=== PATIENT | male | born 1975 | race Caucasian/White ===

== ENCOUNTER 2017-11-08 18:51 | Inpatient (IN) | payer BC, OTHER ==
[~2017-11-08] VITALS: Ht 180.3 cm; Wt 113.4 kg
[~2017-11-08 18:51] MED LIST: ATOR20TA42 PO; BACT800T5 PO; CEPH500C3 PO; CLON1 PO; CLOP75 PO; LAMO100 PO; LEVE750T8 PO; METO50TA PO; PRED20 PO; TYLE3 PO
[2017-11-08 19:25] VITALS: BP 163/86; PULSE 100; RESP 20; TEMP 98.4; O2SAT 97
--- NOTE | 2017-11-08 21:52 | RADRPT ---
EXAM DATE/TIME: 11/08/2017 20:56 [place] COMPARISON: No previous studies available for comparison. INDICATIONS : Right leg pain and swelling. MEDICAL HISTORY : Hypertension. Hypercholesterolemia. Seizures. PE. CAD. Kidney Stones. SURGICAL HISTORY : Coronary artery stent. Inguinal hernia repair. Umbilical hernia repair. Right Femur moris placement. Right Ureter Surgery. ENCOUNTER: Initial ACUITY: PAIN SCORE: LOCATION: Right leg. TECHNIQUE: Venous ultrasound of the leg was performed from the inguinal ligament to the proximal calf. Real-char e, color Doppler and spectral tracing, compression and augmentation techniques were used. FINDINGS: There is normal compressibility of the deep venous system from the inguinal region to the proximal ca lf. No echogenic clot is seen in the lumen of the common femoral, femoral, popliteal, and posterior tibial veins. There is a normal response of the venous system to proximal and distal augmentation an d respiration. CONCLUSION: 1. Negative for deep venous thrombosis. Mildly enlarged right inguinal lymph nodes. Kev Lopez MD on November 08, 2017 at 21:49 Board Certified Radiologist. This report was verified electronically.
[2017-11-08 21:56] LABS: AUTOMATED NEUTROPHIL # 2.9 TH/MM3 (1.8-7.7); BASOPHIL % 0.3 % (0.0-2.0); EOSINOPHIL # 0.2 TH/MM3 (0-0.4); EOSINOPHIL % 4.2 % (0.0-4.0); HEMOGLOBIN 14.4 GM/DL (13.0-17.0); LYMPH % 37.5 % (9.0-44.0); LYMPHOCYTE # 2.2 TH/MM3 (1.0-4.8); MEAN CELL VOLUME 95.6 FL (80.0-100.0); MEAN CORPUSCULAR HEMOGLOBIN 33.5 PG (27.0-34.0); MEAN PLATELET VOLUME 8.8 FL (7.0-11.0); MONO % 9.1 % (0.0-8.0); MONOCYTE # 0.5 TH/MM3 (0-0.9); NEUT % 48.9 % (16.0-70.0); PLATELET COUNT 192 TH/MM3 (150-450); RED BLOOD COUNT 4.28 MIL/MM3 (4.50-5.90); RED CELL DISTRIBUTION WIDTH 13.8 % (11.6-17.2)
[2017-11-08 22:08] LABS: AST (GOT) 19 U/L (15-37); BICARBONATE 24.1 MEQ/L (21.0-32.0); BLOOD UREA NITROGEN 12 MG/DL (7-18); CALCIUM 8.6 MG/DL (8.5-10.1); CHLORIDE 110 MEQ/L (98-107); CREATININE 0.92 MG/DL (0.60-1.30); GLOMERULAR FILTRATION RATE 90 ML/MIN (>89); GLUCOSE,RANDOM 80 MG/DL (74-106); SODIUM (NA) 142 MEQ/L (136-145)
[2017-11-08 22:11] LABS: ALKALINE PHOSPHATASE 102 U/L (45-117); ALT (GPT) 31 U/L (12-78); TOTAL BILIRUBIN ADULT 0.4 MG/DL (0.2-1.0); TOTAL PROTEIN 7.5 GM/DL (6.4-8.2)
[2017-11-08] MEDS ORDERED: LAMI200T PO (22:11)
[2017-11-08] MEDS ORDERED: KEPP10002 PO (22:11)
[2017-11-08] MEDS ORDERED: LIPI20TA PO (22:11)
[2017-11-08] MEDS ORDERED: PLAV75TA29 PO (22:11)
[2017-11-08] MEDS ORDERED: METO50TA PO (22:11)
[2017-11-08] MEDS ORDERED: CLON1 PO (22:11)
[2017-11-08 22:15] VITALS: BP 154/91; PULSE 84; RESP 18; O2SAT 97
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
[2017-11-08] MEDS ORDERED: VANCOMYCIN INJ 1,000 MG in SODIUM CHLOR 0.9% 250 ML INJ 250 ML IV ONE (23:00)
[2017-11-08] MEDS ORDERED: PIPERACIL-TAZO 3.375 GM PREMIX 50 ML IV ONE (23:00)
[2017-11-08] MEDS ORDERED: SODIUM CHLOR 0.9% 1000 ML INJ 1,000 ML IV ONE (23:00)
[2017-11-08] MEDS ORDERED: ACETAMINOPHEN/HYDROcodone 325 MG/5 MG TAB PO ONE (23:15)
[2017-11-09] VITALS (9 sets, daily range): BP systolic 110–141; BP diastolic 59–83; PULSE 62–91; RESP 15–21; TEMP 97.6–98.8; O2SAT 93–98
[2017-11-09] MEDS ORDERED: SENNOSIDES 8.6 MG TAB PO PRN (01:30)
[2017-11-09] MEDS ORDERED: NALOXONE HCL 0.4 MG/ML AMP IV PUSH PRN (01:30)
[2017-11-09] MEDS ORDERED: BISACODYL 10 MG SUPP RECTAL PRN (01:30)
[2017-11-09] MEDS ORDERED: MAGNESIUM HYDROXIDE SUSP 30 ML CUP PO PRN (01:30)
[2017-11-09] MEDS ORDERED: Vancomycin Consult Pharmacy 1 EA OTHER SCH (01:30)
[2017-11-09] MEDS ORDERED: ONDANSETRON HCL 4 MG/2 ML VIAL IVP PRN (01:30)
[2017-11-09] MEDS ORDERED: LACTULOSE SYRUP 20 GM/30 ML CUP PO PRN (01:30)
[2017-11-09] MEDS ORDERED: ACETAMINOPHEN 325 MG TAB PO PRN (01:30)
[2017-11-09] MEDS ORDERED: lamoTRIgine 100 MG TAB PO ONE (02:15)
[2017-11-09] MEDS ORDERED: clonazePAM 1 MG TAB PO ONE (02:15)
[2017-11-09] MEDS ORDERED: levETIRAcetam 500 MG TAB PO ONE (02:15)
[2017-11-09] MEDS ORDERED: VANCOMYCIN 1 GM/200 ML INJ 200 ML IV ONE (03:00)
--- NOTE | 2017-11-09 03:19 | HHI.HP ---
[facility] Jasmyne Conde MD Admission Diagnosis right leg Cellulitis Diagnoses: Travel History International Travel<30 Days: No Contact w/Intl Traveler <30 Da: No Traveled to Known Affected Are: No History of Present Illness 42-year-old male with a past medical history significant for previous PE, coronary artery disease, hypertension and seizure disorder presents to the emergency department for evaluation of right lower extremity redness and swelling. The patient reports that on Wednesday he had 2 small red dots on the back of his thigh which she thought was a spider bite. Over the last 2 days the area of erythema and induration has expanded to include a large portion of the posterior aspect of his right thigh, down the back of his knee and onto his right calf. The area is dry and scaly without drainage or fluctuance. The patient endorses subjective chills, denies fever. 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 He was previously treated with 35 days of Levaquin for a testicular mass with retroperitoneal lymphadenopathy. Of note, the patient does have a history of PE and flew from [place] to [facility] earlier this evening. The patient denies any chest pain or shortness of breath. No abdominal pain. No nausea/ vomiting/diarrhea. No fatigue or weakness. Review of Systems Except as stated in HPI: all other systems reviewed are Neg Past Family Social History Past Medical History History of PE Coronary artery disease Seizure disorder Hypertension Past Surgical History Cardiac catheterization with stent placement 1 Coronary artery disease Seizure disorder Hypertension Reported Medications Reported Meds & Active Scripts Active Reported Metoprolol Tartrate 50 Mg Tab 50 Mg PO BID Plavix (Clopidogrel Bisulfate) 75 Mg Tab 75 Mg PO DAILY Lipitor (Atorvastatin Calcium) 20 Mg Tab 20 Mg PO HS Klonopin (Clonazepam) 1 Mg Tab 1 Mg PO BID Lamictal (Lamotrigine) 200 Mg Tab 200 Mg PO BID Keppra (Levetiracetam) 1,000 Mg Tab 1,500 Mg PO BID Allergies: Coded Allergies: clarithromycin (Unverified Allergy, Severe, HICCUPS FOR 1 WK, 4/2/18) cyclobenzaprine (Unverified Allergy, Severe, SWELLING, 11/08/17) diclofenac (Unverified Allergy, Intermediate, hypertensive, 11/08/17) etodolac (Unverified Allergy, Intermediate, hypertensive, 11/08/17) flurbiprofen (Unverified Allergy, Intermediate, hypertensive, 11/08/17) ibuprofen (Unverified Allergy, Intermediate, hypertensive, 11/08/17) indomethacin (Unverified Allergy, Intermediate, hypertensive, 11/08/17) ketoprofen (Unverified Allergy, Intermediate, hypertensive, 11/08/17) ketorolac (Unverified Allergy, Intermediate, hypertensive, 11/08/17) naproxen (Unverified Allergy, Intermediate, hypertensive, 11/08/17) oxaprozin (Unverified Allergy, Intermediate, hypertensive, 11/08/17) Family History Mother with lupus. Father with diabetes mellitus. Social History Smokes a quarter pack of cigarettes daily. Occasional alcohol. No illicit drugs. Physical Exam Vital Signs Vital Signs Date Time Temp Pulse Resp B/P (MAP) Pulse Ox O2 Delivery O2 Flow Rate FiO2 11/09/17 02:39 72 18 122/77 (92) 96 Room Air 11/09/17 00:16 18 11/09/17 00:10 76 18 127/71 (89) 95 Room Air 11/08/17 22:15 18 97 Room Air 11/08/17 22:15 84 18 154/91 (112) 97 Room Air 11/08/17 19:25 98.4 100 20 163/86 (111) 97 Physical Exam GENERAL: male lying in bed SKIN: Erythema with mild edema on the posterior aspect of the right thigh that extends past the knee to the calf. Areas of dryness and scaly skin. No drainage. HEAD: Atraumatic. Normocephalic. No temporal or scalp tenderness. EYES: Pupils equal round and reactive. Extraocular motions intact. No scleral icterus. No injection or drainage. ENT: Nose without bleeding, purulent drainage or septal hematoma. Throat without erythema, tonsillar hypertrophy or exudate. Uvula midline. Airway patent. NECK: Trachea midline. No JVD or lymphadenopathy. Supple, nontender, no meningeal signs. CARDIOVASCULAR: Regular rate and rhythm without murmurs, gallops, or rubs. RESPIRATORY: Clear to auscultation. Breath sounds equal bilaterally. No wheezes , rales, or rhonchi. GASTROINTESTINAL: Abdomen soft, non-tender, nondistended. No hepato-splenomegaly , or palpable masses. No guarding. MUSCULOSKELETAL: Extremities without clubbing or cyanosis. Pulses intact. NEUROLOGICAL: Awake and alert. Cranial nerves II through XII intact. Motor and sensory grossly within normal limits. Normal speech. Laboratory Laboratory Tests Test 11/08/17 20:50 11/08/17 23:20 White Blood Count 6.0 Red Blood Count 4.28 Hemoglobin 14.4 Hematocrit 41.0 Mean Corpuscular Volume 95.6 Mean Corpuscular Hemoglobin 33.5 Mean Corpuscular Hemoglobin Concent 35.0 Red Cell Distribution Width 13.8 Platelet Count 192 Mean Platelet Volume 8.8 Neutrophils (%) (Auto) 48.9 Lymphocytes (%) (Auto) 37.5 Monocytes (%) (Auto) 9.1 Eosinophils (%) (Auto) 4.2 Basophils (%) (Auto) 0.3 Neutrophils # (Auto) 2.9 Lymphocytes # (Auto) 2.2 Monocytes # (Auto) 0.5 Eosinophils # (Auto) 0.2 Basophils # (Auto) 0.0 CBC Comment DIFF FINAL Differential Comment Blood Urea Nitrogen 12 Creatinine 0.92 Random Glucose 80 Total Protein 7.5 Albumin 4.0 Calcium Level 8.6 Alkaline Phosphatase 102 Aspartate Amino Transf (AST/SGOT) 19 Alanine Aminotransferase (ALT/SGPT) 31 Total Bilirubin 0.4 Sodium Level 142 Potassium Level 3.8 Chloride Level 110 Carbon Dioxide Level 24.1 Anion Gap 8 Estimat Glomerular Filtration Rate 90 Lactic Acid Level 0.7 Date/Time Source Procedure Growth Status 11/08/17 23:20 Blood Peripheral Aerobic Blood Culture Pending Received 11/08/17 23:20 Blood Peripheral Anaerobic Blood Culture Pending Received Result Diagram: 11/08/17204911/08/172049 Caprini VTE Risk Assessment Caprini VTE Risk Assessment: No/Low Risk (score <= 1) Caprini Risk Assessment Model Point Value = 1 Point Value = 2 Point Value = 3 Point Value = 5 Age 41-60 Minor surgery BMI > 25 kg/m2 Swollen legs Varicose veins or History of unexplained or recurrent spontaneous Oral contraceptives or hormone replacement Sepsis (< 1 month) Serious lung disease, including pneumonia (< 1 month) Abnormal pulmonary function Acute myocardial infarction Congestive heart failure (< 1 month) History of inflammatory bowel disease Medical patient at bed rest Age 61-74 Arthroscopic surgery Major open surgery (> 45 min) Laparoscopic surgery (> 45 min) Malignancy Confined to bed (> 72 hours) Immobilizing plaster cast Central venous access Age >= 75 History of VTE Family history of VTE Factor V Leiden Prothrombin [id number] Lupus anticoagulant Anticardiolipin antibodies Elevated serum homocysteine Heparin-induced thrombocytopenia Other congenital or acquired thrombophilia Stroke (< 1 month) Elective arthroplasty Hip, pelvis, or leg fracture Acute spinal cord injury (< 1 month) Prophylaxis Regimen Total Risk Factor Score Risk Level Prophylaxis Regimen 0-1 Low Early ambulation 2 Moderate Order ONE of the following: *Sequential Compression Device (SCD) *Heparin 5000 units SQ BID 3-4 Higher Order ONE of the following medications: *Heparin 5000 units SQ TID *Enoxaparin/Lovenox 40 mg SQ daily (WT < 150 kg, CrCl > 30 mL/min) *Enoxaparin/Lovenox 30 mg SQ daily (WT < 150 kg, CrCl > 10-29 mL/min) *Enoxaparin/Lovenox 30 mg SQ BID (WT < 150 kg, CrCl > 30 mL/min) AND/OR *Sequential Compression Device (SCD) 5 or more Highest Order ONE of the following medications: *Heparin 5000 units SQ TID (Preferred with Epidurals) *Enoxaparin/Lovenox 40 mg SQ daily (WT < 150 kg, CrCl > 30 mL/min) *Enoxaparin/Lovenox 30 mg SQ daily (WT < 150 kg, CrCl > 10-29 mL/min) *Enoxaparin/Lovenox 30 mg SQ BID (WT < 150 kg, CrCl > 30 mL/min) AND *Sequential Compression Device (SCD) Assessment and Plan Assessment and Plan Assessment/plan: 1. Cellulitis Vancomycin/Zosyn Blood cultures pending Transition to by mouth antibiotics if clinically improving and cultures are negative 2. Seizure disorder Continue home Lamictal, Keppra and Klonopin 3. History of PE Patient not currently on long-term anticoagulation Ultrasound right lower extremity negative 4. Hypertension/CAD Continue home medications FEN Heart healthy diet Electrolytes: Monitor and replete when necessary Physician Certification 2 Midnight Certification Type: Admission for Inpatient Services Order for Inpatient Services The services are ordered in accordance with Medicare regulations or non- Medicare payer requirements, as applicable. In the case of services not specified as inpatient-only, they are appropriately provided as inpatient services in accordance with the 2-midnight benchmark. Estimated LOS (days): 2 2 days is the estimated time the patient will need to remain in the hospital, assuming treatment plan goals are met and no additional complications. Post-Hospital Plan: Not yet determined Madison Mcmahon MD Nov 09, 2017 03:18
[2017-11-09 03:51] LABS: PROTHROMBIN TIME - PATIENT 10.6 SEC (9.8-11.6)
[2017-11-09] MEDS: ACETAMINOPHEN/HYDROcodone 325 MG/5 MG TAB PO PRN ×4 (04:36→20:56)
[2017-11-09] MEDS: PIPERACIL-TAZO 3.375 GM PREMIX 50 ML IV SCH ×4 (05:06→23:30)
[2017-11-09] MEDS: levETIRAcetam 500 MG TAB PO SCH ×2 (08:59→20:56)
[2017-11-09] MEDS: DOCUSATE SODIUM 50 MG/SENNA 8.6 MG TAB PO SCH ×2 (09:00→21:00)
[2017-11-09] MEDS: SODIUM CHLORIDE 0.9% FLUSH 10 ML FLUSH IV FLUSH SCH ×2 (09:00→21:07)
[2017-11-09] MEDS: CLOPIDOGREL 75 MG TAB PO SCH (09:00)
[2017-11-09] MEDS: METOPROLOL TARTRATE 50 MG TAB PO SCH ×2 (09:00→20:56)
[2017-11-09] MEDS: clonazePAM 1 MG TAB PO SCH ×2 (09:01→20:55)
[2017-11-09] MEDS: HEPARIN SODIUM - SQ 10,000 UNITS/ML VIAL SQ SCH ×2 (11:00→21:01)
[2017-11-09] MEDS ORDERED: VANCOMYCIN INJ 1,000 MG in SODIUM CHLOR 0.9% 250 ML INJ 250 ML IV SCH (11:00)
[2017-11-09] MEDS: lamoTRIgine 100 MG TAB PO SCH ×2 (11:00→20:55)
[2017-11-09] MEDS: VANCOMYCIN INJ 1,750 MG in SODIUM CHLORID 0.9% 500 ML INJ 500 ML IV SCH ×2 (11:01→23:34)
[2017-11-09] MEDS: ATORVASTATIN 20 MG TAB PO SCH (20:56)
[2017-11-10] MEDS: ACETAMINOPHEN/HYDROcodone 325 MG/5 MG TAB PO PRN ×5 (01:52→21:56)
[2017-11-10 04:00] VITALS: BP 118/61; PULSE 62; RESP 18; TEMP 97.5; O2SAT 95
[2017-11-10] MEDS: PIPERACIL-TAZO 3.375 GM PREMIX 50 ML IV SCH ×4 (05:16→23:58)
[2017-11-10 07:29] LABS: AUTOMATED NEUTROPHIL # 2.8 TH/MM3 (1.8-7.7); BASOPHIL % 0.4 % (0.0-2.0); EOSINOPHIL # 0.2 TH/MM3 (0-0.4); EOSINOPHIL % 3.7 % (0.0-4.0); HEMATOCRIT 38.4 % (39.0-51.0); HEMOGLOBIN 13.2 GM/DL (13.0-17.0); LYMPH % 42.3 % (9.0-44.0); LYMPHOCYTE # 2.7 TH/MM3 (1.0-4.8); MEAN CELL VOLUME 96.8 FL (80.0-100.0); MEAN CORPUSCULAR HEMOGLOBIN 33.2 PG (27.0-34.0); MEAN CORPUSCULAR HGB CONC 34.3 % (32.0-36.0); MEAN PLATELET VOLUME 8.5 FL (7.0-11.0); MONO % 9.1 % (0.0-8.0); MONOCYTE # 0.6 TH/MM3 (0-0.9); NEUT % 44.5 % (16.0-70.0); PLATELET COUNT 164 TH/MM3 (150-450); RED BLOOD COUNT 3.97 MIL/MM3 (4.50-5.90); RED CELL DISTRIBUTION WIDTH 14.2 % (11.6-17.2); WHITE BLOOD COUNT 6.3 TH/MM3 (4.0-11.0)
[2017-11-10 07:49] VITALS: BP 118/59; PULSE 59; RESP 18; TEMP 97.6; O2SAT 94
[2017-11-10 07:53] LABS: BICARBONATE 27.7 MEQ/L (21.0-32.0); CALCIUM 8.4 MG/DL (8.5-10.1); CREATININE 0.95 MG/DL (0.60-1.30)
[2017-11-10] MEDS: METOPROLOL TARTRATE 50 MG TAB PO SCH ×2 (09:00→22:18)
[2017-11-10] MEDS: SODIUM CHLORIDE 0.9% FLUSH 10 ML FLUSH IV FLUSH SCH ×2 (09:00→22:08)
[2017-11-10] MEDS: levETIRAcetam 500 MG TAB PO SCH ×2 (09:58→21:58)
[2017-11-10] MEDS: clonazePAM 1 MG TAB PO SCH ×2 (09:58→21:58)
[2017-11-10] MEDS: lamoTRIgine 100 MG TAB PO SCH ×2 (09:58→21:59)
[2017-11-10] MEDS: DOCUSATE SODIUM 50 MG/SENNA 8.6 MG TAB PO SCH ×2 (09:58→21:58)
[2017-11-10] MEDS: CLOPIDOGREL 75 MG TAB PO SCH (09:59)
[2017-11-10] MEDS: HEPARIN SODIUM - SQ 10,000 UNITS/ML VIAL SQ SCH ×2 (09:59→21:59)
[2017-11-10] MEDS ORDERED: INFLUENZA VIRUS VACCINE (QUADRIVALENT) 0.5 ML SYR IM ONE (10:00)
[2017-11-10] MEDS ORDERED: PNEUMOCOCCAL POLYVALENT INJ 25 MCG/0.5 ML SYR IM ONE (10:00)
[2017-11-10] MEDS ORDERED: PHARMACY ORDERED LAB ONE (11:45)
[2017-11-10 12:00] VITALS: BP 122/82; PULSE 73; RESP 18; TEMP 97.5; O2SAT 96
[2017-11-10] MEDS: VANCOMYCIN INJ 1,750 MG in SODIUM CHLORID 0.9% 500 ML INJ 500 ML IV SCH ×2 (12:51→23:58)
--- NOTE | 2017-11-10 13:49 | HHI.PR ---
Subjective Remarks Follow up cellulitis. Patient states that the erythema is "about the same" and the swelling is "just a little better". Denies fever, chills. No chest pain or dyspnea. Objective Vitals Vital Signs Date Time Temp Pulse Resp B/P (MAP) Pulse Ox O2 Delivery O2 Flow Rate FiO2 11/10/17 12:00 97.5 73 18 122/82 (95) 96 11/10/17 07:49 97.6 59 18 118/59 (78) 94 11/10/17 04:00 97.5 62 18 118/61 (80) 95 11/09/17 23:36 98.0 91 16 112/64 (80) 96 11/09/17 20:50 98.8 65 16 119/59 (79) 95 11/09/17 16:58 97.6 66 21 110/59 (76) 95 11/09/17 15:42 98.4 68 17 118/83 (95) 95 I/O 11/09/17 11/09/17 11/09/17 11/10/17 11/10/17 11/10/17 06:59 14:59 22:59 06:59 14:59 22:59 Intake Total 1300 ml 480 ml 620 ml Balance 1300 ml 480 ml 620 ml Intake Oral 480 ml IV Total 1300 ml 620 ml Result Diagram: 11/10/17 0650 11/10/17 0650 Imaging Last Impressions Lower Extremity Ultrasound 11/08/17 0000 Signed Impressions: Service Date/Time: Wednesday, November 08, 2017 20:56 - CONCLUSION: 1. Negative for deep venous thrombosis. Mildly enlarged right inguinal lymph nodes. Kev Lopez MD Objective Remarks General: No acute distress. Heart: Regular rate and rhythm. No murmur. Lungs: Clear to auscultation bilaterally. No wheezes, rales, or rhonchi. Breathing is nonlabored. Abdomen: Soft, nontender, nondistended. Extremities: No left lower extremity edema. Trace right lower extremity edema. Psych: Alert and oriented. Skin: Erythema and mild edema of the right thigh anteriorly and posteriorly. There is an area of flaking skin. No drainage is noted on his leg, however the sheet underneath his leg shows evidence of serous drainage. Procedures None Urinary Catheter: No Vascular Central Line Catheter: No A/P Assessment and Plan 1. Cellulitis: Continue vancomycin, Zosyn. Blood cultures are negative so far. 2. Seizure disorder: Continue home medications (Lamictal, Keppra, Klonopin). 3. History of PE: Not on long-term anticoagulation. Ultrasound of the right lower extremity is negative for DVT. 4. Hypertension, coronary artery disease: Continue home medications. Currently asymptomatic. 5. DVT prophylaxis: Heparin. Discharge Planning Pending further clinical improvement. Hugo Hines MD Nov 10, 2017 13:49
[2017-11-10 16:00] VITALS: BP 118/73; PULSE 64; RESP 18; TEMP 97.6; O2SAT 97
[2017-11-10 20:00] VITALS: BP 134/72; PULSE 72; RESP 18; TEMP 97.8; O2SAT 95
[2017-11-10] MEDS: ATORVASTATIN 20 MG TAB PO SCH (21:59)
[2017-11-11] VITALS: BP 122/84; PULSE 58; RESP 20; TEMP 97.6; O2SAT 95
[2017-11-11] MEDS: ACETAMINOPHEN/HYDROcodone 325 MG/5 MG TAB PO PRN ×5 (03:11→21:04)
[2017-11-11 04:00] VITALS: BP 123/60; PULSE 61; RESP 18; TEMP 97.2; O2SAT 95
[2017-11-11] MEDS: PIPERACIL-TAZO 3.375 GM PREMIX 50 ML IV SCH ×3 (06:36→16:34)
[2017-11-11] MEDS: levETIRAcetam 500 MG TAB PO SCH ×2 (07:59→21:02)
[2017-11-11] MEDS: CLOPIDOGREL 75 MG TAB PO SCH (07:59)
[2017-11-11] MEDS: METOPROLOL TARTRATE 50 MG TAB PO SCH ×2 (07:59→21:03)
[2017-11-11] MEDS: clonazePAM 1 MG TAB PO SCH ×2 (07:59→21:03)
[2017-11-11] MEDS: lamoTRIgine 100 MG TAB PO SCH ×2 (07:59→21:03)
[2017-11-11] MEDS: HEPARIN SODIUM - SQ 10,000 UNITS/ML VIAL SQ SCH ×2 (08:00→21:03)
[2017-11-11] MEDS: DOCUSATE SODIUM 50 MG/SENNA 8.6 MG TAB PO SCH ×2 (08:02→21:00)
[2017-11-11] MEDS: SODIUM CHLORIDE 0.9% FLUSH 10 ML FLUSH IV FLUSH SCH ×2 (08:02→21:04)
[2017-11-11 08:37] VITALS: BP 121/76; PULSE 60; RESP 16; TEMP 97.2; O2SAT 96
[2017-11-11] MEDS: VANCOMYCIN INJ 1,750 MG in SODIUM CHLORID 0.9% 500 ML INJ 500 ML IV SCH (10:49)
[2017-11-11 12:50] VITALS: BP 108/65; PULSE 55; RESP 16; TEMP 97.9; O2SAT 94
--- NOTE | 2017-11-11 14:17 | HHI.PR ---
Subjective Remarks Follow up cellulitis. Not really improving. Still erythematous, swollen, and painful. Now having pain in left flank. Objective Vitals Vital Signs Date Time Temp Pulse Resp B/P (MAP) Pulse Ox O2 Delivery O2 Flow Rate FiO2 11/11/17 12:50 97.9 55 16 108/65 (79) 94 11/11/17 08:47 16 11/11/17 08:37 97.2 60 16 121/76 (91) 96 11/11/17 04:00 97.2 61 18 123/60 (81) 95 11/11/17 00:00 97.6 58 20 122/84 (97) 95 11/10/17 20:00 97.8 72 18 134/72 (92) 95 11/10/17 16:00 97.6 64 18 118/73 (88) 97 I/O 11/10/17 11/10/17 11/10/17 11/11/17 11/11/17 11/11/17 07:00 15:00 23:00 07:00 15:00 23:00 Intake Total 620 ml Balance 620 ml IV Total 620 ml # Voids 4 3 # Bowel Movements 1 1 Result Diagram: 11/10/17 0650 11/10/17 0650 Imaging Last Impressions Lower Extremity Ultrasound 11/08/17 0000 Signed Impressions: Service Date/Time: Wednesday, November 08, 2017 20:56 - CONCLUSION: 1. Negative for deep venous thrombosis. Mildly enlarged right inguinal lymph nodes. Kev Lopez MD Objective Remarks General: No acute distress. Heart: Regular rate and rhythm. No murmur. Lungs: Clear to auscultation bilaterally. No wheezes, rales, or rhonchi. Breathing is nonlabored. Abdomen: Soft, nontender, nondistended. Extremities: No left lower extremity edema. Trace right lower extremity edema. Psych: Alert and oriented. Skin: Erythema and mild edema of the right thigh anteriorly and posteriorly. There is an area of flaking skin. Essentially unchanged from yesterday. Procedures None Urinary Catheter: No Vascular Central Line Catheter: No A/P Assessment and Plan 1. Cellulitis: Continue vancomycin, Zosyn. Blood cultures are negative so far. Not improving. Consult infectious disease. Patient also had inguinal lymphadenopathy noted on ultrasound. States that he has had abdominal/ retroperitoneal lymphadenopathy on previous imaging and is supposed to have repeat imaging done tomorrow for his outpatient urologist. We will attempt to obtain records from urology and from [facility] radiology. 2. Seizure disorder: Continue home medications (Lamictal, Keppra, Klonopin). 3. History of PE: Not on long-term anticoagulation. Ultrasound of the right lower extremity is negative for DVT. 4. Hypertension, coronary artery disease: Continue home medications. Currently asymptomatic. 5. DVT prophylaxis: Heparin. Discharge Planning Pending further clinical improvement. Hugo Hines MD Nov 11, 2017 14:17
[2017-11-11 16:19] VITALS: BP 126/73; PULSE 66; RESP 16; TEMP 97.9; O2SAT 95
--- NOTE | 2017-11-11 17:38 | PD.ID.CON ---
History of Present Illness Service ID Consult Requested By Dr Johnston Reason for Consult cellulitis, RLE Primary Care Physician Jasmyne Conde MD Diagnoses: History of Present Illness 42 yo male presrtns with 5 days of swollen, red etnder R thigh It started aout 5 days ago and pt started himselfed on amoxocillin left from his recent dental procedure It did not help him and he presented with above smx to [facility] no fever or leukocytosis He was started on zosyn, vanco and states iprovement in pain, swelling and redness He recently took levaquine for 35 days fot L testicular mass Apparently he developped swelling, pain L semiscrotum and retroperotoneal lymphadenopathy. It improved significantly with tx and he is supposed to have a f/u utrasound Review of Systems Except as stated in HPI: all other systems reviewed are Neg Past Family Social History Allergies: Coded Allergies: clarithromycin (Unverified Allergy, Severe, HICCUPS FOR 1 WK, 11/08/17) cyclobenzaprine (Unverified Allergy, Severe, SWELLING, 11/08/17) diclofenac (Unverified Allergy, Intermediate, hypertensive, 11/08/17) etodolac (Unverified Allergy, Intermediate, hypertensive, 11/08/17) flurbiprofen (Unverified Allergy, Intermediate, hypertensive, 11/08/17) ibuprofen (Unverified Allergy, Intermediate, hypertensive, 11/08/17) indomethacin (Unverified Allergy, Intermediate, hypertensive, 11/08/17) ketoprofen (Unverified Allergy, Intermediate, hypertensive, 11/08/17) ketorolac (Unverified Allergy, Intermediate, hypertensive, 11/08/17) naproxen (Unverified Allergy, Intermediate, hypertensive, 11/08/17) oxaprozin (Unverified Allergy, Intermediate, hypertensive, 11/08/17) Past Medical History History of PE Coronary artery disease Seizure disorder Hypertension Past Surgical History Cardiac catheterization with stent placement 1 Coronary artery disease Seizure disorder Hypertension Active Ordered Medications Medications where reviewed in EMR Antibiotics Include: zosyn vanco Family History cousin with testicular ca Mother with lupus. Father with diabetes mellitus. Social History Smokes a quarter pack of cigarettes daily. Occasional alcohol. No illicit drugs. Physical Exam Vital Signs Vital Signs Date Time Temp Pulse Resp B/P (MAP) Pulse Ox O2 Delivery O2 Flow Rate FiO2 11/11/17 16:19 97.9 66 16 126/73 (90) 95 11/11/17 14:32 16 11/11/17 12:50 97.9 55 16 108/65 (79) 94 11/11/17 08:37 97.2 60 16 121/76 (91) 96 11/11/17 04:00 97.2 61 18 123/60 (81) 95 11/11/17 00:00 97.6 58 20 122/84 (97) 95 11/10/17 20:00 97.8 72 18 134/72 (92) 95 Physical Exam CONSTITUTIONAL/GENERAL: This is an adequately nourished patient, in no apparent distress. TUBES/LINES/DRAINS: SKIN: No jaundice, rashes, or lesions. Skin temperature appropriate. Not diaphoretic. R posterior thigh with prominent edema nad erytheam, some scaling noted as well - cw improving cellulitis mild R inginal lymphadenopathy HEAD: Atraumatic. Normocephalic. EYES: Pupils equal and round and reactive. Extraocular motions intact. No scleral icterus. No injection or drainage. Fundi not examined. ENT: Hearing grossly normal. Nose without bleeding or purulent drainage. Throat without visible erythema, exudates, masses, or lesions. NECK: Trachea midline. Supple, nontender. No palpable thyroid enlargement or nodularity. CARDIOVASCULAR: Regular rate and rhythm without murmurs, gallops, or rubs. No JVD. Peripheral pulses symmetric. RESPIRATORY/CHEST: Symmetric, unlabored respirations. Clear to auscultation. Breath sounds equal bilaterally. No wheezes, rales, or rhonchi. GASTROINTESTINAL: Abdomen soft, non-tender, nondistended. No hepato-splenomegaly , or palpable masses. No guarding. Bowel sounds present. GENITOURINARY: Without palpable bladder distension. Mild swelling and ? small mass of L testicle MUSCULOSKELETAL: Extremities without clubbing, cyanosis, or edema. No joint tenderness or effusion noted. No calf tenderness. No mottling or clubbing. LYMPHATICS: No palpable cervical or supraclavicular adenopathy. NEUROLOGICAL: Awake and alert. Motor and sensory grossly within normal limits. Follows commands. Clear speech. Moves all extremities. PSYCHIATRIC: No obvious anxiety/depression. no apparent hallucinations or other psychotic thought process. Laboratory Date/Time Source Procedure Growth Status 11/08/17 23:20 Blood Peripheral Aerobic Blood Culture - Preliminary NO GROWTH IN 3 DAYS Resulted 11/08/17 23:20 Blood Peripheral Anaerobic Blood Culture - Preliminary NO GROWTH IN 3 DAYS Resulted Result Diagram: 11/10/17 0650 11/10/17 0650 Imaging Last Impressions Lower Extremity Ultrasound 11/08/17 0000 Signed Impressions: Service Date/Time: Wednesday, November 08, 2017 20:56 - CONCLUSION: 1. Negative for deep venous thrombosis. Mildly enlarged right inguinal lymph nodes. Kev Lopez MD Assessment and Plan Assessment and Plan R thigh cellulitis -dc zosyn cont vancomycin eventually d/c on keflex 500 qid and doxycylyne 100 bid to complete 10 days of tx Babs Ramírez MD Nov 11, 2017 17:38
[2017-11-11 20:00] VITALS: BP 125/60; PULSE 62; RESP 20; TEMP 97.6; O2SAT 98
[2017-11-11] MEDS: ATORVASTATIN 20 MG TAB PO SCH (21:03)
[2017-11-12] VITALS: BP 125/77; PULSE 60; RESP 20; TEMP 97.9; O2SAT 95
[2017-11-12] MEDS: VANCOMYCIN INJ 1,750 MG in SODIUM CHLORID 0.9% 500 ML INJ 500 ML IV SCH ×3 (00:21→22:33)
[2017-11-12] MEDS: ACETAMINOPHEN/HYDROcodone 325 MG/5 MG TAB PO PRN ×5 (01:37→22:40)
[2017-11-12 04:00] VITALS: BP 120/73; PULSE 60; RESP 20; TEMP 97.7; O2SAT 99
[2017-11-12] MEDS: levETIRAcetam 500 MG TAB PO SCH ×2 (07:54→21:41)
[2017-11-12] MEDS: METOPROLOL TARTRATE 50 MG TAB PO SCH ×2 (07:54→21:41)
[2017-11-12] MEDS: clonazePAM 1 MG TAB PO SCH ×2 (07:54→21:41)
[2017-11-12] MEDS: CLOPIDOGREL 75 MG TAB PO SCH (07:54)
[2017-11-12] MEDS: lamoTRIgine 100 MG TAB PO SCH ×2 (07:54→21:41)
[2017-11-12] MEDS: SODIUM CHLORIDE 0.9% FLUSH 10 ML FLUSH IV FLUSH SCH ×2 (07:55→21:00)
[2017-11-12] MEDS: DOCUSATE SODIUM 50 MG/SENNA 8.6 MG TAB PO SCH ×2 (07:55→21:00)
[2017-11-12] MEDS: HEPARIN SODIUM - SQ 10,000 UNITS/ML VIAL SQ SCH ×2 (07:55→21:42)
[2017-11-12 08:00] VITALS: BP 126/74; PULSE 55; RESP 18; TEMP 97.5; O2SAT 96
[2017-11-12 08:44] LABS: BASOPHIL % 0.3 % (0.0-2.0); EOSINOPHIL # 0.3 TH/MM3 (0-0.4); EOSINOPHIL % 4.5 % (0.0-4.0); HEMATOCRIT 41.9 % (39.0-51.0); HEMOGLOBIN 14.4 GM/DL (13.0-17.0); LYMPH % 38.8 % (9.0-44.0); LYMPHOCYTE # 2.5 TH/MM3 (1.0-4.8); MEAN CELL VOLUME 97.6 FL (80.0-100.0); MEAN CORPUSCULAR HEMOGLOBIN 33.6 PG (27.0-34.0); MEAN CORPUSCULAR HGB CONC 34.4 % (32.0-36.0); MEAN PLATELET VOLUME 8.1 FL (7.0-11.0); MONO % 10.5 % (0.0-8.0); MONOCYTE # 0.7 TH/MM3 (0-0.9); NEUT % 45.9 % (16.0-70.0); PLATELET COUNT 176 TH/MM3 (150-450); RED BLOOD COUNT 4.29 MIL/MM3 (4.50-5.90); RED CELL DISTRIBUTION WIDTH 13.8 % (11.6-17.2); WHITE BLOOD COUNT 6.5 TH/MM3 (4.0-11.0)
[2017-11-12 09:25] LABS: CALCIUM 8.8 MG/DL (8.5-10.1); CREATININE 0.97 MG/DL (0.60-1.30)
[2017-11-12] MEDS ORDERED: PHARMACY ORDERED LAB ONE (11:45)
[2017-11-12 12:00] VITALS: BP 171/76; PULSE 81; RESP 18; TEMP 97.9; O2SAT 96
--- NOTE | 2017-11-12 13:24 | HHI.PR ---
Subjective Remarks Follow-up cellulitis. Patient states that his swelling has gotten better. Erythema slightly improved. He is requesting to have imaging done related to lymphadenopathy that was being evaluated by his urologist as an outpatient. Objective Vitals Vital Signs Date Time Temp Pulse Resp B/P (MAP) Pulse Ox O2 Delivery O2 Flow Rate FiO2 11/12/17 08:00 97.5 55 18 126/74 (91) 96 11/12/17 04:00 97.7 60 20 120/73 (89) 99 11/12/17 00:00 97.9 60 20 125/77 (93) 95 11/11/17 20:00 97.6 62 20 125/60 (81) 98 11/11/17 17:56 16 11/11/17 16:19 97.9 66 16 126/73 (90) 95 I/O 11/11/17 11/11/17 11/11/17 11/12/17 11/12/17 11/12/17 07:00 15:00 23:00 07:00 15:00 23:00 Intake Total 480 ml Balance 480 ml Intake Oral 480 ml # Voids 3 2 2 # Bowel Movements 1 1 0 Result Diagram: 11/12/17 0750 11/12/17 0750 Imaging Last Impressions Lower Extremity Ultrasound 11/08/17 0000 Signed Impressions: Service Date/Time: Wednesday, November 08, 2017 20:56 - CONCLUSION: 1. Negative for deep venous thrombosis. Mildly enlarged right inguinal lymph nodes. Kev Lopez MD Objective Remarks General: No acute distress. Heart: Regular rate and rhythm. No murmur. Lungs: Clear to auscultation bilaterally. No wheezes, rales, or rhonchi. Breathing is nonlabored. Abdomen: Soft, nontender, nondistended. Extremities: No left lower extremity edema. Trace right lower extremity edema. Psych: Alert and oriented. Skin: Erythema and mild edema of the right thigh anteriorly and posteriorly. There is an area of flaking skin. Slightly less swollen today. Procedures None Urinary Catheter: No Vascular Central Line Catheter: No A/P Assessment and Plan 1. Cellulitis: Continue vancomycin, Zosyn. Blood cultures are negative so far. Improving. Appreciate infectious disease recommendations. Patient also had inguinal lymphadenopathy noted on ultrasound. States that he has had abdominal/retroperitoneal lymphadenopathy on previous imaging and was supposed to have repeat imaging done today for his outpatient urologist. We have requested records from urology and from [facility] radiology. 2. Seizure disorder: Continue home medications (Lamictal, Keppra, Klonopin). 3. History of PE: Not on long-term anticoagulation. Ultrasound of the right lower extremity is negative for DVT. 4. Hypertension, coronary artery disease: Continue home medications. Currently asymptomatic. 5. DVT prophylaxis: Heparin. Discussed with Dr. Ramírez. At this time no imaging is indicated for further workup of his infection. Will defer imaging of the lymphadenopathy to his urologist as an outpatient. Discharge Planning Possible discharge home tomorrow. Hugo Hines MD Nov 12, 2017 13:24
[2017-11-12 16:00] VITALS: BP 118/61; PULSE 64; RESP 18; TEMP 97.9; O2SAT 96
[2017-11-12 20:00] VITALS: BP 126/70; PULSE 83; RESP 18; TEMP 98.2; O2SAT 96
[2017-11-12] MEDS: ATORVASTATIN 20 MG TAB PO SCH (21:41)
[2017-11-13] VITALS: BP 116/59; PULSE 60; RESP 16; TEMP 97.4; O2SAT 94
[2017-11-13] MEDS: ACETAMINOPHEN/HYDROcodone 325 MG/5 MG TAB PO PRN ×5 (02:45→21:43)
[2017-11-13 04:00] VITALS: BP 131/65; PULSE 69; RESP 16; TEMP 97.4; O2SAT 95
[2017-11-13 08:12] VITALS: BP 112/60; PULSE 58; RESP 20; TEMP 97.3; O2SAT 92
[2017-11-13] MEDS: clonazePAM 1 MG TAB PO SCH ×2 (09:49→21:44)
[2017-11-13] MEDS: lamoTRIgine 100 MG TAB PO SCH ×2 (09:49→21:44)
[2017-11-13] MEDS: VANCOMYCIN INJ 1,750 MG in SODIUM CHLORID 0.9% 500 ML INJ 500 ML IV SCH ×2 (09:49→21:00)
[2017-11-13] MEDS: levETIRAcetam 500 MG TAB PO SCH ×2 (09:49→21:42)
[2017-11-13] MEDS: DOCUSATE SODIUM 50 MG/SENNA 8.6 MG TAB PO SCH ×2 (09:50→21:00)
[2017-11-13] MEDS: HEPARIN SODIUM - SQ 10,000 UNITS/ML VIAL SQ SCH (09:50)
[2017-11-13] MEDS: SODIUM CHLORIDE 0.9% FLUSH 10 ML FLUSH IV FLUSH SCH ×2 (09:51→21:45)
[2017-11-13] MEDS: METOPROLOL TARTRATE 50 MG TAB PO SCH ×2 (09:51→21:44)
[2017-11-13] MEDS: CLOPIDOGREL 75 MG TAB PO SCH (09:51)
--- NOTE | 2017-11-13 10:34 | HHI.PR ---
Subjective Remarks Follow up cellulitis. Patient is complaining of pain and mass in his left testicle. Becoming more tender. Also having left flank/abdominal pain. Right leg swelling is improving, but worsens when he is on his feet. Objective Vitals Vital Signs Date Time Temp Pulse Resp B/P (MAP) Pulse Ox O2 Delivery O2 Flow Rate FiO2 11/13/17 08:12 97.3 58 20 112/60 (77) 92 11/13/17 04:00 97.4 69 16 131/65 (87) 95 11/13/17 00:00 97.4 60 16 116/59 (78) 94 11/12/17 20:00 98.2 83 18 126/70 (88) 96 11/12/17 19:51 16 11/12/17 16:00 97.9 64 18 118/61 (80) 96 11/12/17 12:00 97.9 81 18 171/76 (107) 96 I/O 11/12/17 11/12/17 11/12/17 11/13/17 11/13/17 11/13/17 07:00 15:00 23:00 07:00 15:00 23:00 Intake Total 720 ml 640 ml Balance 720 ml 640 ml Intake Oral 720 ml 640 ml # Voids 2 3 2 # Bowel Movements 0 1 0 Result Diagram: 11/12/17 0750 11/12/17 0750 Imaging Last Impressions Lower Extremity Ultrasound 11/08/17 0000 Signed Impressions: Service Date/Time: Wednesday, November 08, 2017 20:56 - CONCLUSION: 1. Negative for deep venous thrombosis. Mildly enlarged right inguinal lymph nodes. Kev Lopez MD Objective Remarks General: No acute distress. Heart: Regular rate and rhythm. No murmur. Lungs: Clear to auscultation bilaterally. No wheezes, rales, or rhonchi. Breathing is nonlabored. Abdomen: Soft, nontender, nondistended. Extremities: No left lower extremity edema. Trace right lower extremity edema. Psych: Alert and oriented. Skin: Erythema and mild edema of the right thigh anteriorly and posteriorly. Erythema slightly less than the marked area from yesterday. Slightly less swollen today. : Tender mass of left testicle. Procedures None Urinary Catheter: No Vascular Central Line Catheter: No A/P Assessment and Plan 1. Cellulitis: Continue vancomycin, Zosyn. Blood cultures are negative so far. Improving. Appreciate infectious disease recommendations. Patient also had mild right inguinal lymphadenopathy noted on ultrasound. 2. Seizure disorder: Continue home medications (Lamictal, Keppra, Klonopin). 3. History of PE: Not on long-term anticoagulation. Ultrasound of the right lower extremity is negative for DVT. 4. Hypertension, coronary artery disease: Continue home medications. Currently asymptomatic. 5. Testicular mass/tenderness: The patient states that he has had abdominal/ retroperitoneal lymphadenopathy on previous imaging and was supposed to have repeat imaging done for his outpatient urologist. We have requested records from urology and from [facility] radiology, but have not received them yet. Consult patient's urologist to assist with evaluation. 6. DVT prophylaxis: Heparin. Discharge Planning Possible discharge home soon. Pending urology evaluation and further clinical improvement. Hugo Hines MD Nov 13, 2017 10:34
[2017-11-13 11:35] VITALS: BP 99/50; PULSE 63; RESP 20; TEMP 97.8; O2SAT 97
--- NOTE | 2017-11-13 14:30 | MB ---
cc: AbrahamSunnydiamond Macias DO DATE: 11/13/2017 HISTORY OF PRESENT ILLNESS: Mr. Love is a 42-year-old male who initially presented to [place] with right thigh cellulitis and swelling of his thigh over the last 5 days. He has been on IV vancomycin for this problem during his hospitalization. Approximately 1 month ago, he noted some left-sided testicular swelling associated with a left testicular mass and was seen by Dr. Ceron. Per report, he underwent a scrotal ultrasound, which showed a mass in the left testicle, but also had a CT scan which showed some retroperitoneal adenopathy. Records have been requested during his hospital stay from Dr. Ceron but none have been sent from his office. He was treated with 35 days of Levaquin for a possible infection in this area. His testicular swelling did improve, but he still has a mass present and has noted pain at times. He denies any trauma to the testicle. The only other urological problem he has had in the past is he underwent a right UPJ repair approximately 15 years ago, as well as lithotripsy for stone disease last year. He does have some left-sided flank pain at present, which he has noticed over the last few days. He denies any nausea or vomiting. PAST MEDICAL HISTORY: Includes coronary artery disease, status post NV with stent placement in the past, history of pulmonary embolus, seizure disorder and hypertension. PAST SURGICAL HISTORY: Cardiac catheterization procedure with a stent placement in 2012, a right UPJ repair 15 years ago and lithotripsy 1 year ago for stone disease. MEDICATIONS: Please refer to the chart. ALLERGIES: HE HAS MULTIPLE ALLERGIES. PLEASE REFER TO THE CHART. FAMILY HISTORY: Cousin with a history of testicular cancer. Mother with lupus. Father with diabetes. SOCIAL HISTORY: Smokes 1/4 pack daily. Occasional alcohol. No drug usage is noted. Works as a psychiatric nurse. REVIEW OF SYSTEMS: He complains of left-sided testicular tenderness with palpable mass. Denies chest pain or shortness of breath at present. Denies abdominal pain, but does have some left-sided flank pain. Denies bleeding disorders; however, he is on Plavix. Denies gait disturbances. Denies vision problems. Denies fever or chills. Does have right thigh swelling with erythema due to cellulitis. The remaining review of systems were reviewed and were negative. PHYSICAL EXAMINATION: VITAL SIGNS: Temperature 97.8, heart rate 63, respiratory rate 20, 99/50 is the blood pressure, 97% on room air. GENERAL: A well-developed, well-nourished, 42-year-old male in no acute distress. HEENT: Normocephalic, atraumatic. Pupils equal, round, regular, reactive to light. Extraocular movements intact. NECK: Supple. HEART: Regular rate and rhythm. LUNGS: Clear. ABDOMEN: Soft, nontender, and nondistended. GENITOURINARY: Normal phallus, circumcised. Testes are descended. There is a mass noted on the surface of the left testicle. There is no cord tenderness. Cremasteric reflex is present. There is no inguinal adenopathy palpated. EXTREMITIES: Show no its, clubbing or edema. There is some erythema to the right thigh, which has been improving over time per report. NEUROLOGIC: Cranial nerves 2-12 are intact. LABORATORY DATA: White count 6.5, hemoglobin 14.4, hematocrit 41.9, platelet count 176. Sodium 141, potassium 3.6, chloride 106, CO2 of 28.0, BUN of 8, creatinine 0.97, glucose of 79. PT is 10.6, INR 1.02, PTT is 25.7. ASSESSMENT AND PLAN: A 42-year-old male with a left testicular mass with a history of retroperitoneal adenopathy on prior CT scan report. Recommend a testicular ultrasound today, followed by CT scan of the abdomen and pelvis. If scans are positive, will need left inguinal orchiectomy in the a.m. and we will need to reverse his Plavix with platelets. Risks and benefits of the procedure discussed and the patient is willing to proceed. We will also send tumor markers, AFP, beta hCG and LDH; n.p.o. after midnight. Thank you for the consult and allowing us to participate in the care of this patient. DO SIXTO Lala/MARCELLUS , 01:24 PM , 02:29 PM ANA
[2017-11-13 14:37] VITALS: BP 146/71; PULSE 72
--- NOTE | 2017-11-13 15:38 | RADRPT ---
EXAM DATE/TIME: 11/13/2017 14:09 [facility] COMPARISON: No previous studies available for comparison. [facility], Ultrasound testicular, July 17, 2010 INDICATIONS : Palpable left testicular mass. MEDICAL HISTORY : AVM frontal lobe. Seizures. TX. CAD. Hypercholesterol. HTN. DVT. Renal disease. SURGICAL HISTORY : Metal removed from right eye. Cardiac catheterization. Hernia repair. Right ureter surgery. Righ t femur moris. ENCOUNTER: Subsequent ACUITY: 1 month PAIN SCORE: 0/10 LOCATION: Bilateral scrotum. MEASUREMENTS: RIGHT TESTICLE: 4.2 x 3.0 x 2.3cm LEFT TESTICLE: 3.8 x 2.6 x 2.0cm FINDINGS: RIGHT TESTICLE: Echotexture is heterogeneous. Microlithiasis without evidence of intra or extratesticular mass. Bloo d flow is symmetric and within normal limits. No hydrocele or varicocele. Epididymis is within norm al limits. LEFT TESTICLE: Echotexture is heterogeneous. Microlithiasis is noted. A 1.7 x 1.5 cm mass is identified in the mid t esticle.. Blood flow is symmetric and within normal limits. A small hydrocele is noted. No evidence o f varicocele. Epididymis is within normal limits. SCROTUM: Within normal limits. CONCLUSION: 1. Bilateral testicular microlithiasis 2. 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 3. Small left hydrocele. Gopi Ventura MD on November 13, 2017 at 15:32 Board Certified Radiologist. This report was verified electronically.
--- NOTE | 2017-11-13 16:35 | HHI.IDPN ---
Subjective Subjective Remarks Patient seen and examined with Dr. Roger Greer for Dr. Ramírez 42-year-old male presents with 5 days of swollen, red tender right thigh. Patient started himself on amoxicillin left over from a recent dental procedure. Patient denies any associated fever or leukocytosis. Patient was started on Zosyn and vancomycin with some improvement in pain swelling and redness. Patient states he was hiking in [facility] approximately 8 days prior to the onset of the rash on his right leg. He reports he was wearing long pants. Patient reports that the rash began as 2 small bumps on the back of the right leg that worsened suddenly and dramatically with increased pain, swelling and redness. He thought maybe he had been bitten by something. Patient also endorses itching. Patient also reports significant edema in the right leg which has improved. Approximately 1 month ago, patient had some left-sided testicular swelling and underwent a scrotal ultrasound that showed a partial mass in the left testicle as well as a CT scan showing retroperitoneal adenopathy. He was treated with 35 days of Levaquin. Patient states the testicular swelling improved. Infectious disease consulted for evaluation and management of cellulitis Notes reviewed Patient seen and examined Patient reports improvement in pitting edema but states the redness is unchanged C/o itching Denies any change in his detergent. Does report changing his soap 2 mos ago. Denies any wearing any specific clothing on the RLE. Denies any fever or chills Denies any N/V or abdominal pain Denies any diarrhea Patient is afebrile WBC 6.5 on 11/12 BCX show no growth Antibiotics IV Vancomycin Lines PIV line with no evidence of infection Past Medical History History of PE Coronary artery disease Seizure disorder Hypertension (Eileen Joel) Allergies: Coded Allergies: clarithromycin (Unverified Allergy, Severe, HICCUPS FOR 1 WK, 11/08/17) cyclobenzaprine (Unverified Allergy, Severe, SWELLING, 11/08/17) diclofenac (Unverified Allergy, Intermediate, hypertensive, 11/08/17) etodolac (Unverified Allergy, Intermediate, hypertensive, 11/08/17) flurbiprofen (Unverified Allergy, Intermediate, hypertensive, 11/08/17) ibuprofen (Unverified Allergy, Intermediate, hypertensive, 11/08/17) indomethacin (Unverified Allergy, Intermediate, hypertensive, 11/08/17) ketoprofen (Unverified Allergy, Intermediate, hypertensive, 11/08/17) ketorolac (Unverified Allergy, Intermediate, hypertensive, 11/08/17) naproxen (Unverified Allergy, Intermediate, hypertensive, 11/08/17) oxaprozin (Unverified Allergy, Intermediate, hypertensive, 11/08/17) Objective . Vital Signs Date Time Temp Pulse Resp B/P (MAP) Pulse Ox O2 Delivery O2 Flow Rate FiO2 11/13/17 14:37 72 146/71 (96) 11/13/17 11:35 97.8 63 20 99/50 (66) 97 11/13/17 08:12 97.3 58 20 112/60 (77) 92 11/13/17 04:00 97.4 69 16 131/65 (87) 95 11/13/17 00:00 97.4 60 16 116/59 (78) 94 11/12/17 20:00 98.2 83 18 126/70 (88) 96 11/12/17 19:51 16 11/13/17 11/13/17 11/14/17 15:00 23:00 07:00 Intake Total 500 ml Balance 500 ml IV Total 500 ml . Laboratory Tests Test 11/12/17 07:50 White Blood Count 6.5 TH/MM3 Red Blood Count 4.29 MIL/MM3 Hemoglobin 14.4 GM/DL Hematocrit 41.9 % Mean Corpuscular Volume 97.6 FL Mean Corpuscular Hemoglobin 33.6 PG Mean Corpuscular Hemoglobin Concent 34.4 % Red Cell Distribution Width 13.8 % Platelet Count 176 TH/MM3 Mean Platelet Volume 8.1 FL Neutrophils (%) (Auto) 45.9 % Lymphocytes (%) (Auto) 38.8 % Monocytes (%) (Auto) 10.5 % Eosinophils (%) (Auto) 4.5 % Basophils (%) (Auto) 0.3 % Neutrophils # (Auto) 3.0 TH/MM3 Lymphocytes # (Auto) 2.5 TH/MM3 Monocytes # (Auto) 0.7 TH/MM3 Eosinophils # (Auto) 0.3 TH/MM3 Basophils # (Auto) 0.0 TH/MM3 CBC Comment DIFF FINAL Differential Comment Laboratory Tests Test 11/12/17 07:50 11/13/17 13:54 Blood Urea Nitrogen 8 MG/DL Creatinine 0.97 MG/DL Random Glucose 79 MG/DL Calcium Level 8.8 MG/DL Sodium Level 141 MEQ/L Potassium Level 3.6 MEQ/L Chloride Level 106 MEQ/L Carbon Dioxide Level 28.0 MEQ/L Anion Gap 7 MEQ/L Estimat Glomerular Filtration Rate 84 ML/MIN Lactate Dehydrogenase 157 U/L Tumor Marker Alpha Fetoprotein 3.2 NG/ML Tumor Marker HCG LESS THAN 1 MIU/ML Imaging Last Impressions Scrotum Ultrasound 11/13/17 0000 Signed Impressions: Service Date/Time: Monday, November 13, 2017 14:09 - CONCLUSION: 1. Bilateral testicular microlithiasis 2. 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 3. Small left hydrocele. Gopi Ventura MD Lower Extremity Ultrasound 11/08/17 0000 Signed Impressions: Service Date/Time: Wednesday, November 08, 2017 20:56 - CONCLUSION: 1. Negative for deep venous thrombosis. Mildly enlarged right inguinal lymph nodes. Kev Lopez MD Physical Exam GENERAL: This well-developed well-nourished male, no acute distress. Awake and alert. Sitting up in bed. SKIN: Right leg with extensive scaly rash on erythematous base extending along lateral aspect to back of leg to inner thigh. Appears to have receded a minimal amount from demarcated line. HEAD: Atraumatic. Normocephalic. EYES: Extraocular motions intact. No scleral icterus. No injection or drainage. ENT: Nose without bleeding or purulent drainage. Throat without visible erythema or exudates. No oral thrush. NECK: Trachea midline. CARDIOVASCULAR: Regular rate and rhythm without murmurs, gallops, or rubs. RESPIRATORY/CHEST: Clear to auscultation. Breath sounds equal bilaterally. No wheezes, rales, or rhonchi. GASTROINTESTINAL: Abdomen soft, non-tender, nondistended. MUSCULOSKELETAL: Extremities without clubbing, cyanosis, or edema. NEUROLOGICAL: Awake and alert. Motor and sensory grossly within normal limits. Normal speech. PSYCHIATRIC: Appropriate mood and affect. Normal judgment and insight. (Eileen Joel) Assessment & Plan Remarks ASSESSMENT: Right lower extremity cellulitis, improving -doppler negative for DVT but reveals mildly enlarged right inguinal lymph node -previously on vancomycin and Zosyn, Zosyn discontinued -Blood cultures with no growth x 5 days Left testicular mass History of retroperitoneal adenopathy on prior CT scan -Urology following -tumor markers negative -Testicular ultrasound reveals 1.7 cm left testicular mass, characteristic of neoplastic process -plan for left inguinal orchiectomy tomorrow a.m. -CT abd/pelvis pending Hx of PE Seizure disorder RECOMMENDATIONS: Continue on IV Vancomycin Plan to discharge on Keflex 500mg QID and Doxycycline 100mg BID x 10 days Monitor for clinical improvement Will continue to follow Discussed with patient, Dr. Hines, Dr. Rosario (Eileen Joel) Remarks The exam, history, and the medical decision-making described in the above note were completed with the assistance of the mid-level provider. I reviewed and agree with the findings presented. I attest that I had a [id number] encounter with the patient on the same day, and personally performed and documented my assessment and findings in the medical record. Will add Diflucan IV till post op then switch to oral Start Nystatin Local application For Orchiectomy tomorrow by Urology to resume care on Wednesday. Will follow prn over weekend. (Claudette Duran MD) Eileen Joel Nov 13, 2017 16:35 Claudette Duran MD Nov 13, 2017 19:12
--- NOTE | 2017-11-13 17:27 | RADRPT ---
EXAM DATE/TIME: 11/13/2017 15:27 [facility] COMPARISON: No previous studies available for comparison. INDICATIONS : Diffuse abdomen pain. ORAL CONTRAST: No oral contrast ingested. RADIATION DOSE: 15.39 CTDIvol (mGy) MEDICAL HISTORY : Cardiovascular disease. Seizures. Hypertension. SURGICAL HISTORY : hernia repair ENCOUNTER: Initial ACUITY: 1 day PAIN SCALE: 4/10 LOCATION: abd,pelvis TECHNIQUE: Volumetric scanning of the abdomen and pelvis was performed. Using automated exposure control and ad justment of the mA and/or kV according to patient size, radiation dose was kept as low as reasonably achievable to obtain optimal diagnostic quality images. DICOM format image data is available electro nically for review and comparison. FINDINGS: LOWER LUNGS: The visualized lower lungs are clear. LIVER: Homogeneous density without lesion. There is no dilation of the biliary tree. No calcified gallston es. SPLEEN: Normal size without lesion. PANCREAS: Within normal limits. KIDNEYS: There is a 1.7 cm low-density mass at the lateral mid right kidney. This is nonspecific on this nonco ntrast CT examination. Renal stones or hydronephrosis is not seen. ADRENAL GLANDS: Within normal limits. VASCULAR: There is no aortic aneurysm. BOWEL/MESENTERY: The stomach, small bowel, and colon demonstrate no acute abnormality. There is no free intraperitone al air or fluid. ABDOMINAL WALL: There is minimal induration in the subcutaneous tissues likely related to subcutaneous injections. It does appear to be some thinning and interspersed fat within the right posterior lateral abdominal wa ll which could be from prior intervention or injury. RETROPERITONEUM: There is no lymphadenopathy. BLADDER: Urinary bladder is only mildly distended. There is diffuse thickening which is likely secondary to la ck of distention. REPRODUCTIVE: Prostatic calcifications are present. The prostate is not enlarged. INGUINAL: Hernia mesh is seen bilaterally. Normal-sized lymph nodes are present in the inguinal regions. MUSCULOSKELETAL: There is surgical hardware at the right proximal femur. CONCLUSION: 1. No acute intra-abdominal process is seen. 2. 1.7 cm low-density mass at the right mid lateral kidney. This is nonspecific on this noncontrast C T examination. It could represent a cyst. 3. Abnormal appearing posterior lateral right abdominal wall with some muscular thickening and inters persed fat likely from prior intervention or injury. 4. Hernia mesh in the inguinal regions without recurrent hernias. Obey Barton MD on November 13, 2017 at 17:16 Board Certified Radiologist. This report was verified electronically.
[2017-11-13 20:00] VITALS: BP 151/89; PULSE 70; RESP 16; TEMP 97.8; O2SAT 98
[2017-11-13] MEDS: NYSTATIN 100,000 UNIT/GM CREAM 15 GM TOPICAL SCH (20:00)
[2017-11-13] MEDS: FLUCONAZOLE 100 MG PREMIX BAG 50 ML IV SCH (21:00)
[2017-11-13] MEDS: ATORVASTATIN 20 MG TAB PO SCH (21:42)
[2017-11-14] VITALS (9 sets, daily range): BP systolic 107–125; BP diastolic 61–97; PULSE 68–88; RESP 14–20; TEMP 97.2–98.4; O2SAT 92–97
[2017-11-14] MEDS: ACETAMINOPHEN/HYDROcodone 325 MG/5 MG TAB PO PRN ×2 (02:03→05:54)
[2017-11-14] MEDS ORDERED: CHLORHEXIDINE GLUCONATE 2 % 1 PACK (2 CLOTHS) TOPICAL PRN (03:15)
[2017-11-14] MEDS ORDERED: POVIDONE IODINE 5% (ANTISEPSIS KIT) 4 APPLICATIONS EACH NARE PRN (03:15)
[2017-11-14] MEDS ORDERED: SODIUM CHLORID 0.9% 500 ML IV PRN (03:15)
[2017-11-14] MEDS ORDERED: LACTATED RINGER'S 1000 ML IV PRN (03:15)
[2017-11-14] MEDS: NYSTATIN 100,000 UNIT/GM CREAM 15 GM TOPICAL SCH ×4 (05:22→18:06)
[2017-11-14] MEDS ORDERED: KETAMINE HCL 50 MG/5 ML SYRINGE ONE (08:01)
[2017-11-14] MEDS ORDERED: ACETAMINOPHEN 1000 MG/100 ML 100 ML IV ONE (08:01)
[2017-11-14] MEDS ORDERED: MIDAZOLAM HCL 2 MG/2 ML VIAL ONE (08:01)
[2017-11-14] MEDS ORDERED: BUPIVACAINE HCL PF 0.5% 30 ML VIAL ONE (08:22)
[2017-11-14] MEDS: clonazePAM 1 MG TAB PO SCH ×2 (08:32→22:01)
[2017-11-14] MEDS: levETIRAcetam 500 MG TAB PO SCH ×2 (08:32→22:02)
[2017-11-14] MEDS: VANCOMYCIN INJ 1,750 MG in SODIUM CHLORID 0.9% 500 ML INJ 500 ML IV SCH ×2 (08:32→21:54)
[2017-11-14] MEDS: lamoTRIgine 100 MG TAB PO SCH ×2 (08:32→22:01)
[2017-11-14] MEDS: DOCUSATE SODIUM 50 MG/SENNA 8.6 MG TAB PO SCH ×2 (08:33→21:00)
[2017-11-14] MEDS: METOPROLOL TARTRATE 50 MG TAB PO SCH ×2 (08:33→21:00)
[2017-11-14] MEDS: SODIUM CHLORIDE 0.9% FLUSH 10 ML FLUSH IV FLUSH SCH ×2 (08:33→22:00)
[2017-11-14] MEDS ORDERED: BUPIVACAINE/EPINEPHRINE 0.5% 50 ML VIAL ONE (09:31)
--- NOTE | 2017-11-14 10:54 | PD.OP ---
Operative Report Date of Surgery: Nov 14, 2017 Preoperative Diagnosis: Left testicular mass Postoperative Diagnosis: Same Procedure: Radical left inguinal orchiectomy Anesthesia: General LMA Surgeon: Sunny Rosario Unit Control Clerk(s): None Resident Surgeon: None Operation and Findings: 42-year-old male with findings of a left testicular mass for over 1 month. The patient was initially evaluated by Dr. Ceron and ultrasound was performed 1 month ago suggesting a mass of the left testicle. He was also noted to have some retroperitoneal adenopathy on CT scan. This was all per the patient's report. A ultrasound of the scrotum was performed yesterday demonstrating a left testicular mass 1 cm in size concerning for a neoplastic processs. CT scan of the abdomen and pelvis showed no intra-abdominal process or retroperitoneal adenopathy. Tumor markers were within normal limits. Decision made to bring the patient to the operating room to undergo left radical inguinal orchiectomy. Risk and benefits were discussed preoperatively and the patient was willing to proceed. The patient was brought to the operating room and identified by myself as Jamaal Love. He was placed in the supine position on the operating table. He received preprocedure antibiotics and general LMA anesthesia was administered. He was prepped and draped in usual sterile fashion. Areas of cellulitis involving the right thigh were covered with Ioban. 0.5% Marcaine with 1% epinephrine was injected into the skin where the incision was to occur. Using a 15 blade, the opening incision was made extending from the pubic tubercle to the anterior superior iliac crest. Bovie cautery was then utilized to get through Esperanza's and Camper's fascia. 15 blade was used to open the external oblique aponeurosis. Metzenbaum scissors were then used to enlarge the incision from the pubic tubercle up to the anterior superior iliac spine. The cord was palpated inferiorly and using a Gabriella was grasped and brought to the surface. Using finger dissection, the cord was elevated and then a Ksenia drain was placed high upon the cord near the internal ring. The testicle was then delivered onto the field. A mass was palpated near the upper pole of the testicle. The most proximal area of the cord was then suture ligated with 2-0 silk suture. The silk suture was cut with a long time. Specimen was then sent to pathology. The wound was then irrigated with antibiotic solution. 2-0 Prolene suture was then used to close the external oblique aponeurosis. This was performed in a running fashion. 2- 0 Vicryl suture was then used to close Camper's and Esperanza's fascia. The skin was then closed with a 4-0 Monocryl running suture. Steri-Strips were placed and then Premapore for was used as a dressing. He was awoken, extubated, and transferred to recovery in stable condition. He tolerated the procedure well and there were no complications. Sunny Rosario DO Nov 14, 2017 10:54
[2017-11-14] MEDS ORDERED: *morphine SULFATE 4 MG/ML PERIprocedure ONLY ONE ×2 (11:05→11:25)
[2017-11-14] MEDS ORDERED: oxyCODONE/ACETAMINOPHEN 10 MG/325 MG TAB PO PRN (11:15)
[2017-11-14] MEDS ORDERED: MORPHINE SULFATE 2 MG/ML SYRINGE IV PUSH PRN (11:15)
[2017-11-14] MEDS ORDERED: DO NOT ADM ANY ANTICOAGULANT DRUGS PRN (11:15)
[2017-11-14] MEDS ORDERED: LIDOCAINE HCL 1% PF 5 ML SYRINGE OTHER ONE (12:00)
[2017-11-14] MEDS ORDERED: PHENYLEPH/NS 1000 MCG/10 ML SYR IV ONE (12:00)
[2017-11-14] MEDS ORDERED: ePHEDrine/NS 25 MG/5 ML SYRINGE IV ONE (12:00)
[2017-11-14] MEDS ORDERED: DEXAMETHASONE SOD PHOS 4 MG/ML VIAL IV ONE (12:00)
[2017-11-14] MEDS ORDERED: ONDANSETRON HCL 4 MG/2 ML VIAL IV PUSH ONE (12:00)
[2017-11-14] MEDS ORDERED: PROPOFOL 200 MG/20 ML AMP IV ONE (12:00)
[2017-11-14] MEDS: HYDROmorphone HCL PF 2 MG/ML VIAL IV PUSH PRN ×3 (14:17→21:54)
--- NOTE | 2017-11-14 14:39 | HHI.PR ---
Subjective Remarks Follow-up cellulitis, testicular mass. Status post orchiectomy. Patient states that the cellulitis has improved somewhat overnight. He is having pain following the surgery. Objective Vitals Vital Signs Date Time Temp Pulse Resp B/P (MAP) Pulse Ox O2 Delivery O2 Flow Rate FiO2 11/14/17 12:36 97.2 69 20 119/73 (88) 93 11/14/17 11:30 97.8 71 16 118/74 94 11/14/17 11:30 97.8 71 16 118/78 (91) 94 Nasal Cannula 2 11/14/17 11:28 97.8 73 14 119/74 92 11/14/17 11:15 78 14 110/71 (84) 98 Nasal Cannula 2 11/14/17 11:12 98.4 72 15 117/75 93 11/14/17 11:00 74 15 117/75 (89) 95 Nasal Cannula 4 11/14/17 10:55 98.4 83 20 108/70 (83) 98 Nasal Cannula 4 11/14/17 09:05 97.8 71 20 115/64 (81) 96 11/14/17 04:00 97.4 68 16 125/63 (83) 96 11/14/17 00:00 97.8 83 18 123/97 (106) 97 11/13/17 20:00 97.8 70 16 151/89 (109) 98 11/13/17 14:37 72 146/71 (96) I/O 11/13/17 11/13/17 11/13/17 11/14/17 11/14/17 11/14/17 07:00 15:00 23:00 07:00 15:00 23:00 Intake Total 640 ml 500 ml 880 ml Output Total 10 ml Balance 640 ml 500 ml 870 ml Intake Oral 640 ml IV Total 500 ml 500 ml Platelets 190 ml Blood Product IV Normal Saline Flush 190 ml Output Estimated Blood Loss 10 ml # Voids 2 2 # Bowel Movements 0 Result Diagram: 11/12/17 0750 11/12/17 0750 Imaging Last Impressions Scrotum Ultrasound 11/13/17 0000 Signed Impressions: Service Date/Time: Monday, November 13, 2017 14:09 - CONCLUSION: 1. Bilateral testicular microlithiasis 2. 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 3. Small left hydrocele. Gopi Ventura MD Abdomen/Pelvis CT 11/13/17 0000 Signed Impressions: Service Date/Time: Monday, November 13, 2017 15:27 - CONCLUSION: 1. No acute intra-abdominal process is seen. 2. 1.7 cm low-density mass at the right mid lateral kidney. This is nonspecific on this noncontrast CT examination. It could represent a cyst. 3. Abnormal appearing posterior lateral right abdominal wall with some muscular thickening and interspersed fat likely from prior intervention or injury. 4. Hernia mesh in the inguinal regions without recurrent hernias. Obey Barton MD Lower Extremity Ultrasound 11/08/17 0000 Signed Impressions: Service Date/Time: Wednesday, November 08, 2017 20:56 - CONCLUSION: 1. Negative for deep venous thrombosis. Mildly enlarged right inguinal lymph nodes. Kev Lopez MD Objective Remarks General: No acute distress. Heart: Regular rate and rhythm. No murmur. Lungs: Clear to auscultation bilaterally. No wheezes, rales, or rhonchi. Breathing is nonlabored. Abdomen: Soft, nontender, nondistended. Extremities: No left lower extremity edema. Trace right lower extremity edema. Psych: Alert and oriented. Skin: Erythema of the right thigh is improving. : Deferred Procedures 11/14/17 radical left inguinal orchiectomy Urinary Catheter: No Vascular Central Line Catheter: No A/P Assessment and Plan 1. Cellulitis: Improving. Continue vancomycin, Diflucan. Zosyn discontinued. Blood cultures are negative. Appreciate infectious disease recommendations. Patient also had mild right inguinal lymphadenopathy noted on ultrasound. 2. Seizure disorder: Continue home medications (Lamictal, Keppra, Klonopin). 3. History of PE: Not on long-term anticoagulation. Ultrasound of the right lower extremity is negative for DVT. 4. Hypertension, coronary artery disease: Continue home medications. Currently asymptomatic. 5. Testicular mass/tenderness: The patient states that he has had abdominal/ retroperitoneal lymphadenopathy on previous imaging and was supposed to have repeat imaging done for his outpatient urologist. We have requested records from urology and from [facility] radiology, but have not received them yet. Appreciate urology recommendations. Discussed at length yesterday with Dr. Rosario. Ultrasound shows left testicular mass. Status post orchiectomy. Tumor markers are negative. 6. DVT prophylaxis: Heparin. Discharge Planning Plan for discharge home when cleared by urology, infectious disease. Hugo Hines MD Nov 14, 2017 14:39
--- NOTE | 2017-11-14 17:12 | EKG ---
Date Performed: 11/14/2017 Time Performed: 05:50:06 PTAGE: 42 years EKG: Sinus rhythm WITH FIRST DEGREE AV BLOCK RIGHT VENTRICULAR CONDUCTION DELAY SMALL Q WAVES IN LEADS I AND aVL AND L ATERALLY OF UNDETERMINED SIGNIFICANCE CANNOT EXCLUDE PREVIOUS LATERAL SC Compared to previous tracing , the axis is less leftward. The Q waves are somewhat less prominent anterolaterally. Otherwise no si gnificant change ABNORMAL ECG PREVIOUS TRACING : 12/06/2012 05.36 DOCTOR: Josep Walker Interpretating Date/Time 11/14/2017 17:10:41
[2017-11-14] MEDS: FLUCONAZOLE 100 MG PREMIX BAG 50 ML IV SCH (21:54)
[2017-11-14] MEDS: ATORVASTATIN 20 MG TAB PO SCH (22:02)
[2017-11-15] VITALS: BP 101/53; PULSE 76; RESP 16; TEMP 97.7; O2SAT 95
[2017-11-15] MEDS: HYDROmorphone HCL PF 2 MG/ML VIAL IV PUSH PRN ×5 (01:48→20:05)
[2017-11-15] MEDS: SODIUM CHLORIDE 0.9% FLUSH 10 ML FLUSH IV FLUSH PRN ×2 (01:48→04:52)
[2017-11-15 04:00] VITALS: BP 108/55; PULSE 81; RESP 16; TEMP 97.5; O2SAT 98
[2017-11-15] MEDS: NYSTATIN 100,000 UNIT/GM CREAM 15 GM TOPICAL SCH ×4 (06:00→16:51)
[2017-11-15 07:46] VITALS: BP 99/52; PULSE 72; RESP 20; TEMP 97.7; O2SAT 98
[2017-11-15] MEDS: VANCOMYCIN INJ 1,750 MG in SODIUM CHLORID 0.9% 500 ML INJ 500 ML IV SCH (08:53)
[2017-11-15] MEDS: METOPROLOL TARTRATE 50 MG TAB PO SCH ×2 (09:00→21:00)
[2017-11-15] MEDS: SODIUM CHLORIDE 0.9% FLUSH 10 ML FLUSH IV FLUSH SCH ×2 (09:00→21:00)
[2017-11-15] MEDS: levETIRAcetam 500 MG TAB PO SCH ×2 (09:00→22:01)
[2017-11-15 09:01] LABS: BASOPHIL % 0.2 % (0.0-2.0); EOSINOPHIL % 0.2 % (0.0-4.0); HEMATOCRIT 40.5 % (39.0-51.0); HEMOGLOBIN 13.6 GM/DL (13.0-17.0); LYMPH % 12.9 % (9.0-44.0); LYMPHOCYTE # 1.5 TH/MM3 (1.0-4.8); MEAN CELL VOLUME 97.5 FL (80.0-100.0); MEAN CORPUSCULAR HEMOGLOBIN 32.7 PG (27.0-34.0); MEAN CORPUSCULAR HGB CONC 33.6 % (32.0-36.0); MEAN PLATELET VOLUME 8.3 FL (7.0-11.0); MONO % 9.2 % (0.0-8.0); MONOCYTE # 1.1 TH/MM3 (0-0.9); NEUT % 77.5 % (16.0-70.0); PLATELET COUNT 181 TH/MM3 (150-450); RED BLOOD COUNT 4.16 MIL/MM3 (4.50-5.90); RED CELL DISTRIBUTION WIDTH 13.9 % (11.6-17.2); WHITE BLOOD COUNT 11.7 TH/MM3 (4.0-11.0)
[2017-11-15] MEDS: lamoTRIgine 100 MG TAB PO SCH ×2 (09:01→22:02)
[2017-11-15] MEDS: clonazePAM 1 MG TAB PO SCH ×2 (09:01→22:02)
[2017-11-15] MEDS: DOCUSATE SODIUM 50 MG/SENNA 8.6 MG TAB PO SCH ×2 (09:02→22:00)
[2017-11-15 09:37] LABS: CALCIUM 8.5 MG/DL (8.5-10.1); CREATININE 1.13 MG/DL (0.60-1.30)
--- NOTE | 2017-11-15 11:17 | HHI.PR ---
Subjective Remarks Follow up cellulitis, testicular mass. Still having pain, but wants to transition to oral pain meds with IV for breakthrough. No other complaints at this time. Objective Vitals Vital Signs Date Time Temp Pulse Resp B/P (MAP) Pulse Ox O2 Delivery O2 Flow Rate FiO2 11/15/17 07:46 97.7 72 20 99/52 (68) 98 11/15/17 04:00 97.5 81 16 108/55 (72) 98 11/15/17 00:00 97.7 76 16 101/53 (69) 95 11/14/17 20:00 98.1 88 16 125/68 (87) 95 11/14/17 16:37 98.3 78 20 107/61 (76) 97 11/14/17 12:36 97.2 69 20 119/73 (88) 93 11/14/17 11:30 97.8 71 16 118/74 94 11/14/17 11:30 97.8 71 16 118/78 (91) 94 Nasal Cannula 2 11/14/17 11:28 97.8 73 14 119/74 92 11/14/17 11:15 78 14 110/71 (84) 98 Nasal Cannula 2 11/14/17 11:12 98.4 72 15 117/75 93 I/O 11/14/17 11/14/17 11/14/17 11/15/17 11/15/17 11/15/17 07:00 15:00 23:00 07:00 15:00 23:00 Intake Total 880 ml 190 ml Output Total 10 ml Balance 870 ml 190 ml Intake Oral 0 ml IV Total 500 ml Platelets 190 ml 190 ml Blood Product IV Normal Saline Flush 190 ml Output Estimated Blood Loss 10 ml # Voids 4 # Bowel Movements 0 Result Diagram: 11/15/17 0819 11/15/17 0819 Imaging Last Impressions Scrotum Ultrasound 11/13/17 0000 Signed Impressions: Service Date/Time: Monday, November 13, 2017 14:09 - CONCLUSION: 1. Bilateral testicular microlithiasis 2. 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 3. Small left hydrocele. Gopi Ventura MD Abdomen/Pelvis CT 11/13/17 0000 Signed Impressions: Service Date/Time: Monday, November 13, 2017 15:27 - CONCLUSION: 1. No acute intra-abdominal process is seen. 2. 1.7 cm low-density mass at the right mid lateral kidney. This is nonspecific on this noncontrast CT examination. It could represent a cyst. 3. Abnormal appearing posterior lateral right abdominal wall with some muscular thickening and interspersed fat likely from prior intervention or injury. 4. Hernia mesh in the inguinal regions without recurrent hernias. Obey Barton MD Lower Extremity Ultrasound 11/08/17 0000 Signed Impressions: Service Date/Time: Wednesday, November 08, 2017 20:56 - CONCLUSION: 1. Negative for deep venous thrombosis. Mildly enlarged right inguinal lymph nodes. Kev Lopez MD Objective Remarks General: No acute distress. Heart: Regular rate and rhythm. No murmur. Lungs: Clear to auscultation bilaterally. No wheezes, rales, or rhonchi. Breathing is nonlabored. Abdomen: Soft, nontender, nondistended. Extremities: No left lower extremity edema. Trace right lower extremity edema. Psych: Alert and oriented. Skin: Erythema of the right thigh is improving. Procedures 11/14/17 radical left inguinal orchiectomy Urinary Catheter: No Vascular Central Line Catheter: No A/P Assessment and Plan 1. Cellulitis: Improving. Continue vancomycin, Diflucan. Zosyn discontinued. Blood cultures are negative. Appreciate infectious disease recommendations. Patient also had mild right inguinal lymphadenopathy noted on ultrasound. 2. Seizure disorder: Continue home medications (Lamictal, Keppra, Klonopin). 3. History of PE: Not on long-term anticoagulation. Ultrasound of the right lower extremity is negative for DVT. 4. Hypertension, coronary artery disease: Continue home medications. Currently asymptomatic. 5. Testicular mass/tenderness: The patient states that he has had abdominal/ retroperitoneal lymphadenopathy on previous imaging and was supposed to have repeat imaging done for his outpatient urologist. We have requested records from urology and from [facility] radiology, but have not received them yet. Appreciate urology recommendations. Ultrasound showed left testicular mass. Status post orchiectomy. Pathology pending. Tumor markers are negative. 6. DVT prophylaxis: Heparin. Discharge Planning Plan for discharge home when cleared by urology, infectious disease. Hugo Hines MD Nov 15, 2017 11:16
[2017-11-15] MEDS ORDERED: oxyCODONE/ACETAMINOPHEN 5 MG/325 MG TAB PO PRN (12:00)
--- NOTE | 2017-11-15 12:12 | HHI.PR ---
Subjective Patient symptoms today Pt seen and examined. Feels well. Still with incisional pain. Objective Vital Signs Vital Signs Date Time Temp Pulse Resp B/P (MAP) Pulse Ox O2 Delivery O2 Flow Rate FiO2 11/15/17 07:46 97.7 72 20 99/52 (68) 98 11/15/17 04:00 97.5 81 16 108/55 (72) 98 11/15/17 00:00 97.7 76 16 101/53 (69) 95 11/14/17 20:00 98.1 88 16 125/68 (87) 95 11/14/17 16:37 98.3 78 20 107/61 (76) 97 11/14/17 12:36 97.2 69 20 119/73 (88) 93 Result Diagram: 11/15/1781811/15/17818 Objective Remarks Abd:soft,nd, incisional tenderness at wound site Dressing intact Medications and IVs Current Medications Medications (Trade) Dose Ordered Sig/Merritt Route Start Time Stop Time Status Last Admin Pharmacy Profile Note 0 ml @ 0 mls/hr UNSCH OTHER 11/09/17 01:30 (NS Flush) 2 ml UNSCH PRN IV FLUSH 11/09/17 01:30 11/15/17 04:52 (NS Flush) 2 ml BID IV FLUSH 11/09/17 09:00 11/14/17 22:00 (Tylenol) 650 mg Q4H PRN PO 11/09/17 01:30 (Zofran Inj) 4 mg Q6H PRN IVP 11/09/17 01:30 (Narcan Inj) 0.4 mg UNSCH PRN IV PUSH 11/09/17 01:30 (Kinsey-Colace) 1 tab BID PO 11/09/17 09:00 11/15/17 09:02 (Milk Of Magnesia Liq) 30 ml Q12H PRN PO 11/09/17 01:30 (Senokot) 17.2 mg Q12H PRN PO 11/09/17 01:30 (Dulcolax Supp) 10 mg DAILY PRN RECTAL 11/09/17 01:30 (Lactulose Liq) 30 ml DAILY PRN PO 11/09/17 01:30 (Lipitor) 20 mg HS PO 11/09/17 21:00 11/14/17 22:02 (KlonoPIN) 1 mg BID PO 11/09/17 09:00 11/15/17 09:01 (Plavix) 75 mg DAILY PO 11/09/17 09:00 Future Hold 11/13/17 09:51 (LaMICtal) 200 mg BID PO 11/09/17 09:00 11/15/17 09:01 (Keppra) 1,500 mg BID PO 11/09/17 09:00 11/15/17 09:00 (Lopressor) 50 mg BID PO 11/09/17 09:00 11/13/17 21:44 (Heparin Inj) 5,000 units Q12HR SQ 11/09/17 09:00 Future Hold 11/13/17 09:50 Vancomycin HCl 1750 mg/Sodium Chloride 517.5 ml @ 250 mls/hr Q12H IV 11/12/17 21:00 11/15/17 08:53 Fluconazole/ Sodium Chloride 50 ml @ 50 mls/hr Q24H IV 11/13/17 21:00 11/14/17 21:54 (Mycostatin Cream) 1 applic Q6HR TOPICAL 11/13/17 20:00 Lactated Ringer's 1,000 ml @ 30 mls/hr Q24H PRN IV 11/14/17 03:15 11/17/17 03:14 Sodium Chloride 500 ml @ 30 mls/hr [id number] PRN IV 11/14/17 03:15 11/17/17 03:14 (Betadine 5% Antisepsis Kit) 1 applic [employer] PRN EACH NARE 11/14/17 03:15 11/17/17 03:14 (Chlorhexidine 2% Cloth) 3 pack [employer] PRN TOPICAL 11/14/17 03:15 11/17/17 03:14 (Dilaudid Pf Inj) 1 mg Q4H PRN IV PUSH 11/15/17 13:00 (Percocet 10-325 Mg) 1 tab Q4HR PRN PO 11/15/17 12:00 (Percocet 5-325 Mg) 1 tab Q4H PRN PO 11/15/17 12:00 Miscellaneous Information SPECIFIC LAB TO BE ELIJAH... ONCE ONCE .XX 11/16/17 08:45 11/16/17 08:46 Assessment and Plan Assessment and Plan 42 y.o. male with left testicular mass s/p left orichectomy. Path pending Sunny Rosario DO Nov 15, 2017 12:12
[2017-11-15] MEDS: oxyCODONE/ACETAMINOPHEN 10 MG/325 MG TAB PO PRN ×3 (12:31→22:02)
[2017-11-15 14:53] VITALS: O2SAT 98
[2017-11-15 16:08] VITALS: BP 122/63; PULSE 80; RESP 20; TEMP 98; O2SAT 94
[2017-11-15 21:25] VITALS: BP 137/72; PULSE 96; RESP 18; TEMP 97.8
[2017-11-15] MEDS: ATORVASTATIN 20 MG TAB PO SCH (22:00)
[2017-11-16] VITALS: BP 149/81; PULSE 80; RESP 18; TEMP 97.7; O2SAT 95
[2017-11-16] MEDS: HYDROmorphone HCL PF 2 MG/ML VIAL IM PRN ×2 (01:48→05:54)
[2017-11-16] MEDS: NYSTATIN 100,000 UNIT/GM CREAM 15 GM TOPICAL SCH ×2 (01:53→06:07)
[2017-11-16] MEDS: oxyCODONE/ACETAMINOPHEN 10 MG/325 MG TAB PO PRN ×4 (02:35→14:51)
[2017-11-16 05:33] VITALS: BP 130/77; PULSE 80; RESP 18; TEMP 98.1; O2SAT 99
[2017-11-16 07:46] VITALS: BP 130/66; PULSE 73; RESP 20; TEMP 98.3; O2SAT 92
[2017-11-16] MEDS ORDERED: PHARMACY ORDERED LAB ONE (08:45)
[2017-11-16] MEDS: SODIUM CHLORIDE 0.9% FLUSH 10 ML FLUSH IV FLUSH SCH (09:00)
[2017-11-16] MEDS: METOPROLOL TARTRATE 50 MG TAB PO SCH (09:00)
[2017-11-16 09:27] LABS: CREATININE 0.92 MG/DL (0.60-1.30)
--- NOTE | 2017-11-16 09:38 | HHI.PR ---
Subjective Remarks Follow up cellulitis, orchiectomy. Patient reporting increased pain and swelling at surgical site overnight. Cellulitis seems to be improving. Objective Vitals Vital Signs Date Time Temp Pulse Resp B/P (MAP) Pulse Ox O2 Delivery O2 Flow Rate FiO2 11/16/17 07:46 98.3 73 20 130/66 (87) 92 11/16/17 05:33 98.1 80 18 130/77 (94) 99 11/16/17 00:00 97.7 80 18 149/81 (103) 95 11/15/17 21:25 97.8 96 18 137/72 (93) 11/15/17 16:08 98.0 80 20 122/63 (82) 94 11/15/17 14:53 98 I/O 11/15/17 11/15/17 11/15/17 11/16/17 11/16/17 11/16/17 07:00 15:00 23:00 07:00 15:00 23:00 Intake Total 960 ml Output Total 200 ml Balance 960 ml -200 ml Intake Oral 960 ml Output Urine Total 200 ml # Voids 1 Result Diagram: 11/15/17 0819 11/16/17 0842 Imaging Last Impressions Scrotum Ultrasound 11/13/17 0000 Signed Impressions: Service Date/Time: Monday, November 13, 2017 14:09 - CONCLUSION: 1. Bilateral testicular microlithiasis 2. 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 3. Small left hydrocele. Gopi Ventura MD Abdomen/Pelvis CT 11/13/17 0000 Signed Impressions: Service Date/Time: Monday, November 13, 2017 15:27 - CONCLUSION: 1. No acute intra-abdominal process is seen. 2. 1.7 cm low-density mass at the right mid lateral kidney. This is nonspecific on this noncontrast CT examination. It could represent a cyst. 3. Abnormal appearing posterior lateral right abdominal wall with some muscular thickening and interspersed fat likely from prior intervention or injury. 4. Hernia mesh in the inguinal regions without recurrent hernias. Obey Barton MD Lower Extremity Ultrasound 11/08/17 0000 Signed Impressions: Service Date/Time: Wednesday, November 08, 2017 20:56 - CONCLUSION: 1. Negative for deep venous thrombosis. Mildly enlarged right inguinal lymph nodes. Kev Lopez MD Objective Remarks General: No acute distress. Heart: Regular rate and rhythm. No murmur. Lungs: Clear to auscultation bilaterally. No wheezes, rales, or rhonchi. Breathing is nonlabored. Abdomen: Soft, nondistended. Tender to palpation around surgical site with increased swelling in left groin. Extremities: No left lower extremity edema. Trace right lower extremity edema. Psych: Alert and oriented. Skin: Erythema of the right thigh continues to improve. Procedures 11/14/17 radical left inguinal orchiectomy Urinary Catheter: No Vascular Central Line Catheter: No A/P Assessment and Plan 1. Cellulitis: Improving. Continue vancomycin, Diflucan. Zosyn discontinued. Blood cultures are negative. Appreciate infectious disease recommendations. Patient also had mild right inguinal lymphadenopathy noted on ultrasound. Per ID, switch to Keflex 500mg QID and Doxycycline 100mg BID at discharge to complete 10 days. 2. Seizure disorder: Continue home medications (Lamictal, Keppra, Klonopin). 3. History of PE: Not on long-term anticoagulation. Ultrasound of the right lower extremity is negative for DVT. 4. Hypertension, coronary artery disease: Continue home medications. Currently asymptomatic. 5. Testicular mass/tenderness: The patient states that he has had abdominal/ retroperitoneal lymphadenopathy on previous imaging and was supposed to have repeat imaging done for his outpatient urologist. We have requested records from urology and from [facility] radiology, but have not received them yet. Appreciate urology recommendations. Ultrasound showed left testicular mass. Status post orchiectomy. Pathology pending. Tumor markers are negative. Patient having increased pain and swelling in left groin. ?seroma/hematoma vs normal postoperative discomfort. Patient did lose IV access overnight and was given IM pain meds instead. 6. DVT prophylaxis: Heparin. Discharge Planning Plan for discharge home when cleared by urology, infectious disease. Hugo Hines MD Nov 16, 2017 09:38
[2017-11-16] MEDS: levETIRAcetam 500 MG TAB PO SCH (09:54)
[2017-11-16] MEDS: DOCUSATE SODIUM 50 MG/SENNA 8.6 MG TAB PO SCH (09:54)
[2017-11-16] MEDS: lamoTRIgine 100 MG TAB PO SCH (09:54)
[2017-11-16] MEDS: clonazePAM 1 MG TAB PO SCH (09:54)
[2017-11-16 12:07] VITALS: BP 124/66; PULSE 79; RESP 20; O2SAT 92
--- NOTE | 2017-11-16 13:17 | HHI.PR ---
Subjective Patient symptoms today Pt seen and examined. Feels well. Some incisional pain. Objective Vital Signs Vital Signs Date Time Temp Pulse Resp B/P (MAP) Pulse Ox O2 Delivery O2 Flow Rate FiO2 11/16/17 12:07 79 20 124/66 (85) 92 11/16/17 07:46 98.3 73 20 130/66 (87) 92 11/16/17 05:33 98.1 80 18 130/77 (94) 99 11/16/17 00:00 97.7 80 18 149/81 (103) 95 11/15/17 21:25 97.8 96 18 137/72 (93) 11/15/17 16:08 98.0 80 20 122/63 (82) 94 11/15/17 14:53 98 Intake & Output 11/16/17 11/16/17 07:00 19:00 Output Total 200 ml Balance -200 ml Output Urine Total 200 ml # Voids 1 Result Diagram: 11/15/17 0819 11/16/17 0842 Objective Remarks Abd:soft,nd, incisional tenderness at wound site Dressing intact 11/16 Abd:soft,nt,nd Wound: clean and dry; healing well. No signs of infection Medications and IVs Current Medications Medications (Trade) Dose Ordered Sig/Merritt Route Start Time Stop Time Status Last Admin Pharmacy Profile Note 0 ml @ 0 mls/hr UNSCH OTHER 11/09/17 01:30 (NS Flush) 2 ml UNSCH PRN IV FLUSH 11/09/17 01:30 11/15/17 04:52 (NS Flush) 2 ml BID IV FLUSH 11/09/17 09:00 11/16/17 09:00 (Tylenol) 650 mg Q4H PRN PO 11/09/17 01:30 (Zofran Inj) 4 mg Q6H PRN IVP 11/09/17 01:30 (Narcan Inj) 0.4 mg UNSCH PRN IV PUSH 11/09/17 01:30 (Kinsey-Colace) 1 tab BID PO 11/09/17 09:00 11/16/17 09:54 (Milk Of Magnesia Liq) 30 ml Q12H PRN PO 11/09/17 01:30 (Senokot) 17.2 mg Q12H PRN PO 11/09/17 01:30 (Dulcolax Supp) 10 mg DAILY PRN RECTAL 11/09/17 01:30 (Lactulose Liq) 30 ml DAILY PRN PO 11/09/17 01:30 (Lipitor) 20 mg HS PO 11/09/17 21:00 11/15/17 22:00 (KlonoPIN) 1 mg BID PO 11/09/17 09:00 11/16/17 09:54 (Plavix) 75 mg DAILY PO 11/09/17 09:00 Future Hold 11/13/17 09:51 (LaMICtal) 200 mg BID PO 11/09/17 09:00 11/16/17 09:54 (Keppra) 1,500 mg BID PO 11/09/17 09:00 11/16/17 09:54 (Lopressor) 50 mg BID PO 11/09/17 09:00 11/13/17 21:44 (Heparin Inj) 5,000 units Q12HR SQ 11/09/17 09:00 Future Hold 11/13/17 09:50 Vancomycin HCl 1750 mg/Sodium Chloride 517.5 ml @ 250 mls/hr Q12H IV 11/12/17 21:00 11/15/17 08:53 Fluconazole/ Sodium Chloride 50 ml @ 50 mls/hr Q24H IV 11/13/17 21:00 11/14/17 21:54 (Mycostatin Cream) 1 applic Q6HR TOPICAL 11/13/17 20:00 11/16/17 06:07 Lactated Ringer's 1,000 ml @ 30 mls/hr Q24H PRN IV 11/14/17 03:15 11/17/17 03:14 Sodium Chloride 500 ml @ 30 mls/hr [id number] PRN IV 11/14/17 03:15 11/17/17 03:14 (Betadine 5% Antisepsis Kit) 1 applic [employer] PRN EACH NARE 11/14/17 03:15 11/17/17 03:14 (Chlorhexidine 2% Cloth) 3 pack [employer] PRN TOPICAL 11/14/17 03:15 11/17/17 03:14 (Percocet 10-325 Mg) 1 tab Q4HR PRN PO 11/15/17 12:00 11/16/17 11:13 (Percocet 5-325 Mg) 1 tab Q4H PRN PO 11/15/17 12:00 (Dilaudid Pf Inj) 1 mg Q4H PRN IM 11/16/17 05:00 11/16/17 05:54 Assessment and Plan Assessment and Plan 42 y.o. male with left testicular mass s/p left orichectomy. Path pending 11/16 42 y.o. male with h/o left testicular mass c/w neoplastic process s/p left inguinal orichectomy Path Pending D/C home. F/U 7-10 days Sunny Rosario DO Nov 16, 2017 13:17
[2017-11-16] MEDS ORDERED: PERC7.5T13 PO (13:46)
[2017-11-16] MEDS ORDERED: DOXY100C PO (13:46)
[2017-11-16] MEDS ORDERED: CEPH500C PO (13:46)
--- NOTE | 2017-11-16 13:48 | HHI.DCPOC ---
Discharge Care Plan Diagnosis: (1) Testicular mass (2) Cellulitis of right lower extremity Goals to Promote Your Health * To prevent worsening of your condition and complications * To maintain your health at the optimal level Directions to Meet Your Goals Take your medications as prescribed Follow your dietary instruction Follow activity as directed Keep your appointments as scheduled Take your immunizations and boosters as scheduled If your symptoms worsen call your PCP, if no PCP go to Urgent Care Center or Emergency Room Smoking is Dangerous to Your Health. Avoid second hand smoke Call the 24-hour hour crisis hotline for domestic abuse at Hugo Hines MD Nov 16, 2017 13:48
--- NOTE | 2017-11-16 14:38 | HHI.DS ---
Discharge Summary Admission Date Nov 09, 2017 at 00:30 Discharge Date: Nov 16, 2017 Admitting Diagnosis right leg Cellulitis (1) Cellulitis of right lower extremity ICD Code: L03.115 - Cellulitis of right lower limb Status: Acute (2) Testicular mass ICD Code: N50.9 - Disorder of male genital organs, unspecified Procedures 11/14/17 radical left inguinal orchiectomy Brief History - From Admission 42-year-old male with a past medical history significant for previous PE, coronary artery disease, hypertension and seizure disorder presents to the emergency department for evaluation of right lower extremity redness and swelling. The patient reports that on Wednesday he had 2 small red dots on the back of his thigh which she thought was a spider bite. Over the last 2 days the area of erythema and induration has expanded to include a large portion of the posterior aspect of his right thigh, down the back of his knee and onto his right calf. The area is dry and scaly without drainage or fluctuance. The patient endorses subjective chills, denies fever. 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 He was previously treated with 35 days of Levaquin for a testicular mass with retroperitoneal lymphadenopathy. Of note, the patient does have a history of PE and flew from [place] to [facility] earlier this evening. The patient denies any chest pain or shortness of breath. No abdominal pain. No nausea/ vomiting/diarrhea. No fatigue or weakness. CBC/BMP: 11/15/17 0819 11/16/17 0842 Significant Findings Laboratory Tests Test 11/15/17 08:19 11/16/17 08:42 White Blood Count 11.7 TH/MM3 (4.0-11.0) Red Blood Count 4.16 MIL/MM3 (4.50-5.90) Neutrophils (%) (Auto) 77.5 % (16.0-70.0) Monocytes (%) (Auto) 9.2 % (0.0-8.0) Neutrophils # (Auto) 9.0 TH/MM3 (1.8-7.7) Monocytes # (Auto) 1.1 TH/MM3 (0-0.9) Estimat Glomerular Filtration Rate 71 ML/MIN (>89) Vancomycin Level Trough 4.9 MCG/ML (5.0-10.0) Imaging Last Impressions Scrotum Ultrasound 11/13/17 0000 Signed Impressions: Service Date/Time: Monday, November 13, 2017 14:09 - CONCLUSION: 1. Bilateral testicular microlithiasis 2. 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 3. Small left hydrocele. Gopi Ventura MD Abdomen/Pelvis CT 11/13/17 0000 Signed Impressions: Service Date/Time: Monday, November 13, 2017 15:27 - CONCLUSION: 1. No acute intra-abdominal process is seen. 2. 1.7 cm low-density mass at the right mid lateral kidney. This is nonspecific on this noncontrast CT examination. It could represent a cyst. 3. Abnormal appearing posterior lateral right abdominal wall with some muscular thickening and interspersed fat likely from prior intervention or injury. 4. Hernia mesh in the inguinal regions without recurrent hernias. Obey Barton MD Lower Extremity Ultrasound 11/08/17 0000 Signed Impressions: Service Date/Time: Wednesday, November 08, 2017 20:56 - CONCLUSION: 1. Negative for deep venous thrombosis. Mildly enlarged right inguinal lymph nodes. Kev Lopez MD PE at Discharge General: No acute distress. Heart: Regular rate and rhythm. No murmur. Lungs: Clear to auscultation bilaterally. No wheezes, rales, or rhonchi. Breathing is nonlabored. Abdomen: Soft, nondistended. Tender to palpation around surgical site with increased swelling in left groin. Extremities: No left lower extremity edema. Trace right lower extremity edema. Psych: Alert and oriented. Skin: Erythema of the right thigh continues to improve. Pt update on day of discharge I spoke with Dr. Ramírez, infectious disease, who recommended switching the patient to Keflex and doxycycline. I spoke with Dr. Rosario, urology, who has cleared the patient for discharge and recommended follow-up in his office in 7- 10 days to discuss pathology results when they are available. Hospital Course Patient was admitted for management of right lower extremity cellulitis. He was started on IV antibiotics. Improvement was slow. Infectious disease was consulted. Diflucan was added. The patient noticed increased swelling and tenderness of the left testicle. Urology was consulted ultrasound showed a left testicular mass. Radical left inguinal orchiectomy was done on 11/14/17. Patient continued to have slow improvement of the cellulitis of the right leg. He was cleared for discharge on oral antibiotics by infectious disease. He was cleared for discharge by urology with instructions to follow-up in the office in 7-10 days for pathology results. Pt Condition on Discharge: Stable Discharge Disposition: Discharge Home Discharge Time: > 30 minutes Discharge Instructions DIET: Follow Instructions for: Heart Healthy Diet Activities you can perform: Regular-No Restrictions Follow up Referrals: PCP Follow-up - 1 Week with Jasmyne Conde MD Urology - 1 Week with Sunny Rosario DO New Medications: Cephalexin (Cephalexin) 500 Mg Cap 500 MG PO Q6H for Infection for 5 Days, #20 CAP 0 Refills Doxycycline Hyclate (Doxycycline Hyclate) 100 Mg Cap 100 MG PO BID for Infection, #10 CAP 0 Refills Oxycodone-Acetaminophen (Percocet) 7.5-325 mg Tab 1 TAB PO Q4H PRN for PAIN for 3 Days, #18 TAB 0 Refills Continued Medications: Atorvastatin (Lipitor) 20 Mg Tab 20 MG PO HS for Cholesterol Management, #30 TAB 0 Refills Clonazepam (Klonopin) 1 Mg Tab 1 MG PO BID, #60 TAB 0 Refills Clopidogrel (Plavix) 75 Mg Tab 75 MG PO DAILY for Blood Clot Prevention, #30 TAB 0 Refills Lamotrigine (Lamictal) 200 Mg Tab 200 MG PO BID for Control Seizures, #60 TAB 0 Refills Levetiracetam (Keppra) 1,000 Mg Tab 1500 MG PO BID for Control Seizures, #60 TAB 0 Refills Metoprolol Tartrate (Metoprolol Tartrate) 50 Mg Tab 50 MG PO BID, #60 TAB 0 Refills Hugo Hines MD Nov 16, 2017 14:38
--- NOTE | 2017-11-16 14:58 | HHI.IDPN ---
Subjective Subjective Remarks sp orchiectomy c/o some redness and tenderness of R thigh no fever Antibiotics IV Vancomycin Lines PIV line with no evidence of infection Past Medical History History of PE Coronary artery disease Seizure disorder Hypertension Allergies: Coded Allergies: clarithromycin (Unverified Allergy, Severe, HICCUPS FOR 1 WK, 11/08/17) cyclobenzaprine (Unverified Allergy, Severe, SWELLING, 11/08/17) diclofenac (Unverified Allergy, Intermediate, hypertensive, 11/08/17) etodolac (Unverified Allergy, Intermediate, hypertensive, 11/08/17) flurbiprofen (Unverified Allergy, Intermediate, hypertensive, 11/08/17) ibuprofen (Unverified Allergy, Intermediate, hypertensive, 11/08/17) indomethacin (Unverified Allergy, Intermediate, hypertensive, 11/08/17) ketoprofen (Unverified Allergy, Intermediate, hypertensive, 11/08/17) ketorolac (Unverified Allergy, Intermediate, hypertensive, 11/08/17) naproxen (Unverified Allergy, Intermediate, hypertensive, 11/08/17) oxaprozin (Unverified Allergy, Intermediate, hypertensive, 11/08/17) Objective . Vital Signs Date Time Temp Pulse Resp B/P (MAP) Pulse Ox O2 Delivery O2 Flow Rate FiO2 11/16/17 12:07 79 20 124/66 (85) 92 11/16/17 07:46 98.3 73 20 130/66 (87) 92 11/16/17 05:33 98.1 80 18 130/77 (94) 99 11/16/17 00:00 97.7 80 18 149/81 (103) 95 11/15/17 21:25 97.8 96 18 137/72 (93) 11/15/17 16:08 98.0 80 20 122/63 (82) 94 . Laboratory Tests Test 11/15/17 08:19 White Blood Count 11.7 TH/MM3 Red Blood Count 4.16 MIL/MM3 Hemoglobin 13.6 GM/DL Hematocrit 40.5 % Mean Corpuscular Volume 97.5 FL Mean Corpuscular Hemoglobin 32.7 PG Mean Corpuscular Hemoglobin Concent 33.6 % Red Cell Distribution Width 13.9 % Platelet Count 181 TH/MM3 Mean Platelet Volume 8.3 FL Neutrophils (%) (Auto) 77.5 % Lymphocytes (%) (Auto) 12.9 % Monocytes (%) (Auto) 9.2 % Eosinophils (%) (Auto) 0.2 % Basophils (%) (Auto) 0.2 % Neutrophils # (Auto) 9.0 TH/MM3 Lymphocytes # (Auto) 1.5 TH/MM3 Monocytes # (Auto) 1.1 TH/MM3 Eosinophils # (Auto) 0.0 TH/MM3 Basophils # (Auto) 0.0 TH/MM3 CBC Comment DIFF FINAL Differential Comment Laboratory Tests Test 11/15/17 08:19 11/16/17 08:42 Blood Urea Nitrogen 17 MG/DL Creatinine 1.13 MG/DL 0.92 MG/DL Random Glucose 106 MG/DL Calcium Level 8.5 MG/DL Sodium Level 137 MEQ/L Potassium Level 3.9 MEQ/L Chloride Level 104 MEQ/L Carbon Dioxide Level 25.0 MEQ/L Anion Gap 8 MEQ/L Estimat Glomerular Filtration Rate 71 ML/MIN 90 ML/MIN Imaging Last Impressions Scrotum Ultrasound 11/13/17 0000 Signed Impressions: Service Date/Time: Monday, November 13, 2017 14:09 - CONCLUSION: 1. Bilateral testicular microlithiasis 2. 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 3. Small left hydrocele. Gopi Ventura MD Abdomen/Pelvis CT 11/13/17 0000 Signed Impressions: Service Date/Time: Monday, November 13, 2017 15:27 - CONCLUSION: 1. No acute intra-abdominal process is seen. 2. 1.7 cm low-density mass at the right mid lateral kidney. This is nonspecific on this noncontrast CT examination. It could represent a cyst. 3. Abnormal appearing posterior lateral right abdominal wall with some muscular thickening and interspersed fat likely from prior intervention or injury. 4. Hernia mesh in the inguinal regions without recurrent hernias. Obey Barton MD Lower Extremity Ultrasound 11/08/17 0000 Signed Impressions: Service Date/Time: Wednesday, November 08, 2017 20:56 - CONCLUSION: 1. Negative for deep venous thrombosis. Mildly enlarged right inguinal lymph nodes. Kev Lopez MD Physical Exam GENERAL: This well-developed well-nourished male, no acute distress. Awake and alert. Sitting up in bed. SKIN: Right leg with extensive scaly rash on erythematous base extending along lateral aspect to back of leg to inner thigh. Improving but still present blanchible Assessment & Plan Remarks R thigh cellulitis Keflex 500 mg q 6 doxycycline 100 bid OK to dc dw Babs Hernandez MD Nov 16, 2017 14:58
[2017-11-16] MEDS ORDERED: CEPHALEXIN MONOHYDRATE 500 MG CAP PO SCH (16:00)
[2017-11-16] MEDS ORDERED: DOXYCYCLINE HYCLATE 100 MG CAP PO SCH (21:00)
== END 2017-11-16 16:10 | disposition home or self-care (01) | DRG 983 ==
LOC: NED 18:51 → NEDA 11-09 00:30 → NEDH 11-09 04:30 → N05A 11-09 16:17
PROVIDERS: ADMIT Family Medicine; ATTEND Family Medicine
PROC: 30233R1 Transfusion of Nonautologous Platelets into Peripheral Vein, Percutaneous Approach (ICD-10-PCS; 2017-11-14)
PROC: 0VTB0ZZ Resection of Left Testis, Open Approach (ICD-10-PCS; principal; 2017-11-14 09:07)
DX: L03.115 Cellulitis of right lower limb (principal); I10 Essential (primary) hypertension; N50.9 Disorder of male genital organs, unspecified; I25.10 Atherosclerotic heart disease of native coronary artery without angina pectoris; G40.909 Epilepsy, unspecified, not intractable, without status epilepticus; R59.0 Localized enlarged lymph nodes; R21 Rash and other nonspecific skin eruption; M54.2 Cervicalgia; G89.29 Other chronic pain; E78.5 Hyperlipidemia, unspecified; F17.210 Nicotine dependence, cigarettes, uncomplicated; I25.2 Old myocardial infarction; Z86.711 Personal history of pulmonary embolism; Z83.3 Family history of diabetes mellitus; Z86.718 Personal history of other venous thrombosis and embolism; Z95.5 Presence of coronary angioplasty implant and graft; Z23 Encounter for immunization
CPT/HCPCS: 36430; 74176; 76870; 76937; 80048; 80053; 80202; 82105; 82565; 83605; 83615; 84702; 85025; 85610; 85730; 86850; 86900; 86901; 87040; 88305; 88309; 93005; 93971; 93975; 96365; 96367; J0131; J1100; J1170; J1450; J1644; J2250; J2270; J2370; J2405; J2543; J3010; J3370; J7030; J7040; J7050; P9035